=== PATIENT | female | born 1950 | race Caucasian/White ===

== ENCOUNTER 2016-05-11 11:00 | Inpatient (IN) | payer OTHER ==
[~2016-05-11] VITALS: Ht 154.9 cm; Wt 63.2 kg
[~2016-05-11 11:00] MED LIST: ACET325T21 PO; ACID1TAB7 PO; AMLO10TA2 PO; AMLO5TAB2 PO; ASPI-496 PO; ASPI-621 PO; CARV6.252 PO; CLOP75TA PO; CLOP75TA22 PO; INSU100C5 SQ-INSULIN; INSU100I28 SQ-INSULIN; ISOS30TA8 PO; LISI-170 PO; LISI40TA PO; LOPE1TAB4 PO; LOVA40TA2 PO; MONT10TA6 PO; PANT40TA3 PO; PANT40TA5 PO; VANC1VIA3 PO
[2016-05-11] MEDS ORDERED: SODIUM CHLORIDE FLUSH 10ML SYR IVF ONE (12:00)
[2016-05-11] MEDS ORDERED: HYDROmorphone 1 MG/ML, 1ML ONE ×2 (12:08→15:48)
[2016-05-11] MEDS: HYDROmorphone 1 MG/ML, 1ML IVPush PRN ×2 (12:24→15:53)
[2016-05-11 12:46] LABS: BLOOD UREA NITROGEN 21 mg/dL (7-18)
[2016-05-11 12:53] LABS: ASPARTATE AMINO TRANSFERASE 8 U/L (15-37)
[2016-05-11 12:59] LABS: ANISOCYTOSIS 1+; HYPOCHROMIA 1+; MICROCYTOSIS 1+; OVALOCYTES 1+; POLYCHROMASIA 1+
[2016-05-11] MEDS ORDERED: CHOL20003 PO (13:49)
[2016-05-11] MEDS ORDERED: VANCOMYCIN 1,200 MG in SODIUM CHLORIDE 0.9% 250 ML IV ONE (14:00)
[2016-05-11] MEDS ORDERED: VANCOMYCIN PER PHARMACY MC ONE (14:00)
[2016-05-11] MEDS ORDERED: VANCOMYCIN PER PHARMACY MC PRN (17:30)
[2016-05-11] MEDS ORDERED: PHARMACOKINETIC MONITORING MC PRN (18:00)
[2016-05-11] MEDS: ACETAMINOPHEN 325 MG TABLET PO PRN (18:04)
[2016-05-11 18:13] LABS: IS PT STATUS REG ER OR PRE ER? NO
[2016-05-11] MEDS: morphine SULFATE 10 MG/ML, 1ML IVPush PRN ×2 (18:21→22:22)
[2016-05-11 20:00] VITALS: BP 170/68
[2016-05-11] MEDS: NICOTINE 14MG/24 HR PATCH.TD24 TD SCH ×2 (21:00→22:08)
[2016-05-11] MEDS: LACTOBACILLUS CHEW TABLET PO SCH (22:07)
[2016-05-11] MEDS: LOVASTATIN 40 MG TABLET PO SCH (22:07)
[2016-05-11] MEDS: CARVEDILOL 12.5 MG TABLET PO SCH (22:08)
[2016-05-11 22:25] VITALS: BP 170/68
[2016-05-11 22:55] VITALS: BP 131/81
[2016-05-12 01:43] VITALS: BP 138/64
[2016-05-12] MEDS: ASPIRIN 81 MG TABLET EC PO SCH (05:33)
[2016-05-12 06:12] LABS: IS PT STATUS REG ER OR PRE ER? NO
[2016-05-12] MEDS: ACETAMINOPHEN 325 MG TABLET PO PRN (06:49)
[2016-05-12 06:53] VITALS: BP 172/80
[2016-05-12] MEDS: LISINOPRIL 20 MG TABLET PO SCH (09:17)
[2016-05-12] MEDS: CARVEDILOL 12.5 MG TABLET PO SCH ×2 (09:17→20:26)
[2016-05-12] MEDS: AMLODIPINE 5 MG TABLET PO SCH (09:17)
[2016-05-12] MEDS: LACTOBACILLUS CHEW TABLET PO SCH ×3 (09:17→20:26)
[2016-05-12] MEDS: CLOPIDOGREL 75 MG TABLET PO SCH (09:18)
[2016-05-12] MEDS: ISOSORBIDE MONONITRATE ER 60 MG TABLET PO SCH (09:18)
[2016-05-12] MEDS: MONTELUKAST 10 MG TABLET PO SCH (09:18)
[2016-05-12] MEDS: CHOLECALCIFEROL 1,000 UNIT TABLET PO SCH (09:18)
[2016-05-12] MEDS: OXYcodone/APAP 5/325MG TABLET PO PRN (11:37)
[2016-05-12] MEDS ORDERED: LIDOCAINE 2%, 20ML ONE (13:35)
[2016-05-12 13:56] VITALS: BP 165/78
[2016-05-12] MEDS ORDERED: MIDAZOLAM 1 MG/ML, 5ML ONE (14:01)
[2016-05-12] MEDS ORDERED: PROTAMINE SULFATE 10 MG/ML, 25ML ONE (14:01)
[2016-05-12] MEDS ORDERED: FENTANYL PF 100 MCG/2ML ONE (14:02)
[2016-05-12] MEDS ORDERED: FLUMAZENIL 0.1 MG/1 ML, 5ML ONE (14:02)
[2016-05-12] MEDS ORDERED: HEPARIN 1,000 UNITS/ML, 10ML ONE (14:02)
[2016-05-12] MEDS ORDERED: NITROGLYCERIN 5 MG/ML, 10ML ONE (14:02)
[2016-05-12] MEDS ORDERED: NALOXONE 1 MG/ML, 2ML ONE (14:02)
[2016-05-12] MEDS ORDERED: HYDROmorphone 1 MG/ML, 1ML ONE (15:23)
[2016-05-12] MEDS ORDERED: DIPHENHYDRAMINE 50 MG/ML, 1ML ONE (15:35)
[2016-05-12] MEDS ORDERED: VISIPAQUE 270 MG/ML, 150ML BOTTLE ONE (16:20)
[2016-05-12 18:35] VITALS: BP 173/89
[2016-05-12] MEDS: LOVASTATIN 40 MG TABLET PO SCH (20:26)
[2016-05-12] MEDS: NICOTINE 14MG/24 HR PATCH.TD24 TD SCH (20:26)
[2016-05-12] MEDS: SODIUM CHLORIDE FLUSH 10ML SYR IVF SCH (20:26)
[2016-05-12] MEDS: SODIUM CHLORIDE 0.9% 1,000 ML IV SCH (21:30)
[2016-05-13 01:27] VITALS: BP 144/53
[2016-05-13 05:38] LABS: BLOOD UREA NITROGEN 17 mg/dL (7-18)
[2016-05-13] MEDS: SODIUM CHLORIDE 0.9% 1,000 ML IV SCH (05:44)
[2016-05-13] MEDS: ASPIRIN 81 MG TABLET EC PO SCH (05:44)
[2016-05-13 06:56] VITALS: BP 179/70
[2016-05-13] MEDS: SODIUM CHLORIDE FLUSH 10ML SYR IVF SCH ×2 (09:00→20:42)
[2016-05-13] MEDS: OXYcodone/APAP 5/325MG TABLET PO PRN ×2 (10:04→18:15)
[2016-05-13] MEDS: ISOSORBIDE MONONITRATE ER 60 MG TABLET PO SCH (10:06)
[2016-05-13] MEDS: LISINOPRIL 20 MG TABLET PO SCH (10:07)
[2016-05-13] MEDS: AMLODIPINE 5 MG TABLET PO SCH (10:07)
[2016-05-13] MEDS: MONTELUKAST 10 MG TABLET PO SCH (10:07)
[2016-05-13] MEDS: LACTOBACILLUS CHEW TABLET PO SCH ×3 (10:07→20:42)
[2016-05-13] MEDS: CHOLECALCIFEROL 1,000 UNIT TABLET PO SCH (10:07)
[2016-05-13] MEDS: CARVEDILOL 12.5 MG TABLET PO SCH ×2 (10:07→20:42)
[2016-05-13] MEDS: CLOPIDOGREL 75 MG TABLET PO SCH (10:07)
[2016-05-13] MEDS ORDERED: VANCOMYCIN 1,200 MG in SODIUM CHLORIDE 0.9% 250 ML IV SCH (14:00)
[2016-05-13 14:20] VITALS: BP 162/70
[2016-05-13 20:00] VITALS: BP 144/63
[2016-05-13] MEDS: HYDROcodone/APAP 5/325 TABLET PO PRN (20:42)
[2016-05-13] MEDS: NICOTINE 14MG/24 HR PATCH.TD24 TD SCH ×3 (20:42→21:00)
[2016-05-13] MEDS: LOVASTATIN 40 MG TABLET PO SCH (20:42)
[2016-05-14 01:27] VITALS: BP 129/66
[2016-05-14] MEDS: OXYcodone/APAP 5/325MG TABLET PO PRN ×3 (05:34→23:32)
[2016-05-14] MEDS: ASPIRIN 81 MG TABLET EC PO SCH (06:00)
[2016-05-14 07:04] VITALS: BP 115/70
[2016-05-14] MEDS: MONTELUKAST 10 MG TABLET PO SCH (08:00)
[2016-05-14] MEDS: AMLODIPINE 5 MG TABLET PO SCH (08:00)
[2016-05-14] MEDS: LACTOBACILLUS CHEW TABLET PO SCH ×3 (08:00→20:25)
[2016-05-14] MEDS: CARVEDILOL 12.5 MG TABLET PO SCH ×2 (08:00→20:25)
[2016-05-14] MEDS: LISINOPRIL 20 MG TABLET PO SCH (08:00)
[2016-05-14] MEDS: CLOPIDOGREL 75 MG TABLET PO SCH (08:00)
[2016-05-14] MEDS: ISOSORBIDE MONONITRATE ER 60 MG TABLET PO SCH (08:01)
[2016-05-14] MEDS: CHOLECALCIFEROL 1,000 UNIT TABLET PO SCH (08:01)
[2016-05-14] MEDS: SODIUM CHLORIDE FLUSH 10ML SYR IVF SCH ×2 (08:02→21:00)
[2016-05-14] MEDS: POLYETHYLENE GLYCOL 17 GM PACKET PO SCH (09:00)
[2016-05-14] MEDS ORDERED: REGADENOSON 0.4 MG/5 ML SYRINGE ONE (10:03)
[2016-05-14] MEDS: morphine SULFATE 10 MG/ML, 1ML IVPush PRN ×2 (11:28→15:17)
[2016-05-14 13:56] VITALS: BP 127/64
[2016-05-14] MEDS: VANCOMYCIN 1,200 MG in SODIUM CHLORIDE 0.9% 250 ML IV SCH (18:26)
[2016-05-14 18:58] VITALS: BP 123/69
[2016-05-14] MEDS: HYDROcodone/APAP 5/325 TABLET PO PRN (20:25)
[2016-05-14] MEDS: LOVASTATIN 40 MG TABLET PO SCH (20:25)
[2016-05-14] MEDS: NICOTINE 14MG/24 HR PATCH.TD24 TD SCH (20:25)
[2016-05-15 01:45] VITALS: BP 128/43
[2016-05-15] MEDS: ASPIRIN 81 MG TABLET EC PO SCH (06:00)
[2016-05-15 07:04] VITALS: BP 159/84
[2016-05-15] MEDS: OXYcodone/APAP 5/325MG TABLET PO PRN ×2 (07:43→17:06)
[2016-05-15] MEDS: CLOPIDOGREL 75 MG TABLET PO SCH (08:48)
[2016-05-15] MEDS: LACTOBACILLUS CHEW TABLET PO SCH ×3 (08:48→21:12)
[2016-05-15] MEDS: POLYETHYLENE GLYCOL 17 GM PACKET PO SCH (08:49)
[2016-05-15] MEDS: SODIUM CHLORIDE FLUSH 10ML SYR IVF SCH ×2 (08:49→21:13)
[2016-05-15] MEDS: AMLODIPINE 5 MG TABLET PO SCH (08:49)
[2016-05-15] MEDS: MONTELUKAST 10 MG TABLET PO SCH (08:49)
[2016-05-15] MEDS: CARVEDILOL 12.5 MG TABLET PO SCH ×2 (08:49→21:13)
[2016-05-15] MEDS: LISINOPRIL 20 MG TABLET PO SCH (08:49)
[2016-05-15] MEDS: CHOLECALCIFEROL 1,000 UNIT TABLET PO SCH (08:50)
[2016-05-15] MEDS: ISOSORBIDE MONONITRATE ER 60 MG TABLET PO SCH (08:50)
[2016-05-15] MEDS: OxyconTIN ER 10 MG TAB.ER PO SCH ×2 (11:33→21:13)
[2016-05-15] MEDS: INSULIN ASPART 100 UNITS/ML, PEN SQ-INSULIN SCH ×3 (12:04→21:16)
[2016-05-15] MEDS: INSULIN DETEMIR 100 UNITS/ML, PEN SQ-INSULIN SCH ×2 (12:05→21:15)
[2016-05-15 13:20] VITALS: BP 90/49
[2016-05-15] MEDS: VANCOMYCIN 1,200 MG in SODIUM CHLORIDE 0.9% 250 ML IV SCH (17:07)
[2016-05-15 19:10] VITALS: BP 139/67
[2016-05-15] MEDS ORDERED: DIPHENHYDRAMINE 50 MG CAPSULE PO ONE (20:30)
[2016-05-15] MEDS: NICOTINE 14MG/24 HR PATCH.TD24 TD SCH (21:00)
[2016-05-15] MEDS: LOVASTATIN 40 MG TABLET PO SCH (21:12)
[2016-05-16 01:18] VITALS: BP 169/72
[2016-05-16] MEDS ORDERED: GLUCAGON 1 MG IM PRN (03:30)
[2016-05-16] MEDS ORDERED: DEXTROSE 4 GM TAB.CHEW PO PRN (03:30)
[2016-05-16] MEDS: OXYcodone/APAP 5/325MG TABLET PO PRN ×4 (04:59→22:35)
[2016-05-16] MEDS: ASPIRIN 81 MG TABLET EC PO SCH (05:07)
[2016-05-16 07:25] VITALS: BP 146/66
[2016-05-16] MEDS: POLYETHYLENE GLYCOL 17 GM PACKET PO SCH (09:00)
[2016-05-16] MEDS: SODIUM CHLORIDE FLUSH 10ML SYR IVF SCH ×2 (09:00→21:11)
[2016-05-16] MEDS: INSULIN ASPART 100 UNITS/ML, PEN SQ-INSULIN SCH (09:42)
[2016-05-16] MEDS: LACTOBACILLUS CHEW TABLET PO SCH ×3 (09:43→21:11)
[2016-05-16] MEDS: CARVEDILOL 12.5 MG TABLET PO SCH ×2 (09:43→21:11)
[2016-05-16] MEDS: ISOSORBIDE MONONITRATE ER 60 MG TABLET PO SCH (09:43)
[2016-05-16] MEDS: AMLODIPINE 5 MG TABLET PO SCH (09:45)
[2016-05-16] MEDS: LISINOPRIL 20 MG TABLET PO SCH (09:45)
[2016-05-16] MEDS: CLOPIDOGREL 75 MG TABLET PO SCH (09:45)
[2016-05-16] MEDS: MONTELUKAST 10 MG TABLET PO SCH (09:45)
[2016-05-16] MEDS: CHOLECALCIFEROL 1,000 UNIT TABLET PO SCH (09:46)
[2016-05-16] MEDS ORDERED: INSULIN DETEMIR 100 UNITS/ML, PEN SQ-INSULIN SCH (10:30)
[2016-05-16] MEDS: OxyconTIN ER 10 MG TAB.ER PO SCH ×2 (11:24→21:11)
[2016-05-16 13:01] VITALS: BP 152/69
[2016-05-16] MEDS: CEFTAROLINE 600 MG in SODIUM CHLORIDE 0.9% 100 ML IV SCH (15:24)
[2016-05-16 18:43] VITALS: BP 149/51
[2016-05-16] MEDS: DEXTROSE 50%, 50ML SYRINGE IVPush PRN (20:16)
[2016-05-16] MEDS: NICOTINE 14MG/24 HR PATCH.TD24 TD SCH (21:00)
[2016-05-16] MEDS: LOVASTATIN 40 MG TABLET PO SCH (21:11)
[2016-05-17 01:59] VITALS: BP 145/73
[2016-05-17] MEDS: CEFTAROLINE 600 MG in SODIUM CHLORIDE 0.9% 100 ML IV SCH ×2 (04:47→15:36)
[2016-05-17] MEDS: ASPIRIN 81 MG TABLET EC PO SCH (06:00)
[2016-05-17] MEDS: OXYcodone/APAP 5/325MG TABLET PO PRN ×3 (06:10→21:16)
[2016-05-17 06:42] VITALS: BP 152/67
[2016-05-17] MEDS: POLYETHYLENE GLYCOL 17 GM PACKET PO SCH (08:55)
[2016-05-17] MEDS: SODIUM CHLORIDE FLUSH 10ML SYR IVF SCH ×2 (08:55→20:50)
[2016-05-17] MEDS: CARVEDILOL 12.5 MG TABLET PO SCH ×2 (08:56→20:51)
[2016-05-17] MEDS: ISOSORBIDE MONONITRATE ER 60 MG TABLET PO SCH (08:56)
[2016-05-17] MEDS: LACTOBACILLUS CHEW TABLET PO SCH ×3 (08:56→20:50)
[2016-05-17] MEDS: CLOPIDOGREL 75 MG TABLET PO SCH (08:56)
[2016-05-17] MEDS: AMLODIPINE 5 MG TABLET PO SCH (08:56)
[2016-05-17] MEDS: MONTELUKAST 10 MG TABLET PO SCH (08:57)
[2016-05-17] MEDS: CHOLECALCIFEROL 1,000 UNIT TABLET PO SCH (08:57)
[2016-05-17] MEDS: LISINOPRIL 20 MG TABLET PO SCH (08:57)
[2016-05-17] MEDS: OxyconTIN ER 10 MG TAB.ER PO SCH ×2 (11:05→23:53)
[2016-05-17 12:39] VITALS: BP 114/57
[2016-05-17 18:54] VITALS: BP 160/64
[2016-05-17] MEDS: LOVASTATIN 40 MG TABLET PO SCH (20:50)
[2016-05-17] MEDS: NICOTINE 14MG/24 HR PATCH.TD24 TD SCH (20:51)
[2016-05-18 01:59] VITALS: BP 132/54
[2016-05-18] MEDS: CEFTAROLINE 600 MG in SODIUM CHLORIDE 0.9% 100 ML IV SCH ×2 (03:43→15:30)
[2016-05-18] MEDS: ASPIRIN 81 MG TABLET EC PO SCH (04:56)
[2016-05-18 06:51] VITALS: BP 152/64
[2016-05-18] MEDS: SODIUM CHLORIDE FLUSH 10ML SYR IVF SCH ×2 (09:00→21:44)
[2016-05-18] MEDS: ONDANSETRON 2MG/ML, 2ML IVPush PRN (09:21)
[2016-05-18] MEDS: OXYcodone/APAP 5/325MG TABLET PO PRN ×2 (09:45→21:44)
[2016-05-18] MEDS: AMLODIPINE 5 MG TABLET PO SCH (09:55)
[2016-05-18] MEDS: MONTELUKAST 10 MG TABLET PO SCH (09:55)
[2016-05-18] MEDS: POLYETHYLENE GLYCOL 17 GM PACKET PO SCH ×2 (09:55→10:00)
[2016-05-18] MEDS: CHOLECALCIFEROL 1,000 UNIT TABLET PO SCH (09:55)
[2016-05-18] MEDS: LISINOPRIL 20 MG TABLET PO SCH (09:56)
[2016-05-18] MEDS: CLOPIDOGREL 75 MG TABLET PO SCH (09:56)
[2016-05-18] MEDS: ISOSORBIDE MONONITRATE ER 60 MG TABLET PO SCH (09:56)
[2016-05-18] MEDS: LACTOBACILLUS CHEW TABLET PO SCH ×3 (09:56→21:44)
[2016-05-18] MEDS: CARVEDILOL 12.5 MG TABLET PO SCH ×2 (09:57→21:48)
[2016-05-18] MEDS: DOCUSATE 100 MG CAPSULE PO PRN (10:00)
[2016-05-18] MEDS: OxyconTIN ER 10 MG TAB.ER PO SCH ×2 (11:30→23:30)
[2016-05-18 12:35] VITALS: BP 105/61
[2016-05-18 19:08] VITALS: BP 155/53
[2016-05-18] MEDS: NICOTINE 14MG/24 HR PATCH.TD24 TD SCH (20:33)
[2016-05-18 21:40] VITALS: BP 127/70
[2016-05-18] MEDS: LOVASTATIN 40 MG TABLET PO SCH (21:44)
[2016-05-19 01:10] VITALS: BP 121/66
[2016-05-19] MEDS: OXYcodone/APAP 5/325MG TABLET PO PRN ×2 (03:13→20:47)
[2016-05-19] MEDS: CEFTAROLINE 600 MG in SODIUM CHLORIDE 0.9% 100 ML IV SCH ×2 (04:24→15:53)
[2016-05-19] MEDS: ASPIRIN 81 MG TABLET EC PO SCH (04:27)
[2016-05-19 06:53] LABS: BLOOD UREA NITROGEN 29 mg/dL (7-18)
[2016-05-19 07:00] VITALS: BP 125/75
[2016-05-19] MEDS: CLOPIDOGREL 75 MG TABLET PO SCH (09:00)
[2016-05-19] MEDS: CHOLECALCIFEROL 1,000 UNIT TABLET PO SCH (09:24)
[2016-05-19] MEDS: MONTELUKAST 10 MG TABLET PO SCH (09:24)
[2016-05-19] MEDS: ISOSORBIDE MONONITRATE ER 60 MG TABLET PO SCH (09:24)
[2016-05-19] MEDS: LISINOPRIL 20 MG TABLET PO SCH (09:24)
[2016-05-19] MEDS: AMLODIPINE 5 MG TABLET PO SCH (09:24)
[2016-05-19] MEDS: CARVEDILOL 12.5 MG TABLET PO SCH ×2 (09:24→20:47)
[2016-05-19] MEDS: LACTOBACILLUS CHEW TABLET PO SCH ×3 (09:24→20:48)
[2016-05-19] MEDS: SODIUM CHLORIDE FLUSH 10ML SYR IVF SCH ×2 (09:25→20:48)
[2016-05-19] MEDS: OxyconTIN ER 10 MG TAB.ER PO SCH ×2 (11:48→23:30)
[2016-05-19 14:26] VITALS: BP 100/61
[2016-05-19 19:13] VITALS: BP 146/63
[2016-05-19] MEDS: NICOTINE 14MG/24 HR PATCH.TD24 TD SCH (20:32)
[2016-05-19] MEDS: LOVASTATIN 40 MG TABLET PO SCH (20:48)
[2016-05-20 01:41] VITALS: BP 144/56
[2016-05-20] MEDS: CEFTAROLINE 600 MG in SODIUM CHLORIDE 0.9% 100 ML IV SCH ×2 (03:43→15:20)
[2016-05-20] MEDS: ASPIRIN 81 MG TABLET EC PO SCH (04:57)
[2016-05-20] MEDS ORDERED: INSULIN ASPART 100 UNITS/ML, PEN SQ-INSULIN ONE ×2 (06:30→16:30)
[2016-05-20] MEDS ORDERED: BACITRACIN OINT 500U/GM, 15 GM ONE (06:38)
[2016-05-20] MEDS: ONDANSETRON 2MG/ML, 2ML IVPush PRN (06:46)
[2016-05-20 06:51] VITALS: BP 134/68
[2016-05-20] MEDS ORDERED: MIDAZOLAM 1 MG/ML, 2ML ONE (07:33)
[2016-05-20] MEDS ORDERED: FENTANYL PF 250 MCG/5ML ONE (07:33)
[2016-05-20] MEDS: SODIUM CHLORIDE FLUSH 10ML SYR IVF SCH ×2 (10:28→20:53)
[2016-05-20] MEDS: ISOSORBIDE MONONITRATE ER 60 MG TABLET PO SCH (10:29)
[2016-05-20] MEDS: MONTELUKAST 10 MG TABLET PO SCH (10:30)
[2016-05-20] MEDS: LISINOPRIL 20 MG TABLET PO SCH (10:30)
[2016-05-20] MEDS: AMLODIPINE 5 MG TABLET PO SCH (10:30)
[2016-05-20] MEDS: LACTOBACILLUS CHEW TABLET PO SCH ×3 (10:30→20:52)
[2016-05-20] MEDS: CARVEDILOL 12.5 MG TABLET PO SCH ×2 (10:30→20:52)
[2016-05-20] MEDS: CLOPIDOGREL 75 MG TABLET PO SCH (10:30)
[2016-05-20] MEDS: POLYETHYLENE GLYCOL 17 GM PACKET PO SCH (10:31)
[2016-05-20] MEDS: CHOLECALCIFEROL 1,000 UNIT TABLET PO SCH (10:32)
[2016-05-20] MEDS: OxyconTIN ER 10 MG TAB.ER PO SCH ×2 (11:32→23:19)
[2016-05-20] MEDS: INSULIN DETEMIR 100 UNITS/ML, PEN SQ-INSULIN SCH (11:53)
[2016-05-20] MEDS: INSULIN ASPART 100 UNITS/ML, PEN SQ-INSULIN SCH ×5 (12:00→20:53)
[2016-05-20 13:04] VITALS: BP 103/56
[2016-05-20] MEDS ORDERED: INSULIN DETEMIR 100 UNITS/ML, PEN SQ-INSULIN ONE (17:00)
[2016-05-20 19:06] VITALS: BP 111/58
[2016-05-20] MEDS: LOVASTATIN 40 MG TABLET PO SCH (20:52)
[2016-05-20] MEDS: NICOTINE 14MG/24 HR PATCH.TD24 TD SCH (20:53)
[2016-05-21] MEDS: DEXTROSE 50%, 50ML SYRINGE IVPush PRN ×2 (01:38→06:20)
[2016-05-21 02:28] VITALS: BP 105/62
[2016-05-21] MEDS: CEFTAROLINE 600 MG in SODIUM CHLORIDE 0.9% 100 ML IV SCH ×2 (03:10→15:10)
[2016-05-21] MEDS: ASPIRIN 81 MG TABLET EC PO SCH (05:33)
[2016-05-21] MEDS: INSULIN ASPART 100 UNITS/ML, PEN SQ-INSULIN SCH ×4 (06:18→21:00)
[2016-05-21 07:26] VITALS: BP 166/65
[2016-05-21] MEDS: INSULIN DETEMIR 100 UNITS/ML, PEN SQ-INSULIN SCH (09:00)
[2016-05-21] MEDS: AMLODIPINE 5 MG TABLET PO SCH (09:00)
[2016-05-21] MEDS: POLYETHYLENE GLYCOL 17 GM PACKET PO SCH (09:00)
[2016-05-21] MEDS: LISINOPRIL 20 MG TABLET PO SCH (09:00)
[2016-05-21] MEDS: CHOLECALCIFEROL 1,000 UNIT TABLET PO SCH (09:00)
[2016-05-21] MEDS: ISOSORBIDE MONONITRATE ER 60 MG TABLET PO SCH (09:00)
[2016-05-21] MEDS: SODIUM CHLORIDE FLUSH 10ML SYR IVF SCH ×2 (09:00→21:00)
[2016-05-21] MEDS: LACTOBACILLUS CHEW TABLET PO SCH ×3 (09:00→21:44)
[2016-05-21] MEDS: MONTELUKAST 10 MG TABLET PO SCH (09:00)
[2016-05-21] MEDS: CLOPIDOGREL 75 MG TABLET PO SCH (09:00)
[2016-05-21] MEDS: CARVEDILOL 12.5 MG TABLET PO SCH ×2 (09:16→21:44)
[2016-05-21] MEDS: OxyconTIN ER 10 MG TAB.ER PO SCH ×2 (11:30→23:08)
[2016-05-21] MEDS ORDERED: FENTANYL PF 100 MCG/2ML ONE ×2 (11:36→13:13)
[2016-05-21] MEDS ORDERED: NEOSPORIN OINT, 15GM ONE (11:47)
[2016-05-21] MEDS ORDERED: PROPOFOL 10 MG/ML, 20ML ONE (12:25)
[2016-05-21] MEDS ORDERED: LABETALOL 5MG/ML, 20ML IV PRN (12:30)
[2016-05-21] MEDS ORDERED: hydrALAzine 20 MG/ML, 1ML IV PRN (12:30)
[2016-05-21] MEDS ORDERED: PROMETHAZINE 25 MG/ML, 1ML IV PRN (12:30)
[2016-05-21] MEDS ORDERED: OXYcodone 5 MG/5 ML ORAL.SOL UDC PO PRN (12:30)
[2016-05-21] MEDS ORDERED: MEPERIDINE/PF 25MG/0.5ML IVPush PRN (12:30)
[2016-05-21] MEDS ORDERED: ONDANSETRON 2MG/ML, 2ML IVPush PRN (12:30)
[2016-05-21] MEDS: FENTANYL PF 100 MCG/2ML IV PRN ×2 (13:10→13:26)
[2016-05-21] MEDS ORDERED: ACETAMINOPHEN 650 MG/20.3 ML UDC ONE (13:13)
[2016-05-21] MEDS ORDERED: ACETAMINOPHEN 325 MG TABLET ONE (13:14)
[2016-05-21] MEDS ORDERED: OXYcodone 5 MG/5 ML ORAL.SOL UDC ONE (13:14)
[2016-05-21] MEDS: ACETAMINOPHEN 325 MG TABLET PO PRN (13:21)
[2016-05-21] MEDS ORDERED: HYDROmorphone 2 MG/ML, 1ML ONE ×2 (13:24→14:29)
[2016-05-21] MEDS: HYDROmorphone 1 MG/ML, 1ML IV PRN ×6 (13:32→14:31)
[2016-05-21] MEDS ORDERED: hydrALAzine 20 MG/ML, 1ML ONE (13:57)
[2016-05-21] MEDS ORDERED: PROMETHAZINE 25 MG/ML, 1ML ONE (14:18)
[2016-05-21 15:10] VITALS: BP 161/57
[2016-05-21] MEDS ORDERED: INSULIN DETEMIR 100 UNITS/ML, PEN SQ-INSULIN SCH ×2 (16:30→17:00)
[2016-05-21] MEDS: OXYcodone/APAP 5/325MG TABLET PO PRN (17:48)
[2016-05-21 19:31] VITALS: BP 165/57
[2016-05-21] MEDS: NICOTINE 14MG/24 HR PATCH.TD24 TD SCH (21:00)
[2016-05-21] MEDS: morphine SULFATE 10 MG/ML, 1ML IVPush PRN ×2 (21:44→23:23)
[2016-05-21] MEDS: LOVASTATIN 40 MG TABLET PO SCH (21:44)
[2016-05-21] MEDS ORDERED: INSULIN DETEMIR 100 UNITS/ML, PEN SQ-INSULIN ONE (22:00)
[2016-05-22 02:03] VITALS: BP 141/50
[2016-05-22] MEDS: OXYcodone/APAP 5/325MG TABLET PO PRN ×2 (02:32→09:25)
[2016-05-22] MEDS: CEFTAROLINE 600 MG in SODIUM CHLORIDE 0.9% 100 ML IV SCH ×2 (03:02→15:54)
[2016-05-22] MEDS: morphine SULFATE 10 MG/ML, 1ML IVPush PRN (04:07)
[2016-05-22] MEDS: ASPIRIN 81 MG TABLET EC PO SCH (06:00)
[2016-05-22] MEDS: INSULIN ASPART 100 UNITS/ML, PEN SQ-INSULIN SCH ×4 (07:00→21:28)
[2016-05-22 07:22] VITALS: BP 131/64
[2016-05-22] MEDS: INSULIN DETEMIR 100 UNITS/ML, PEN SQ-INSULIN SCH (08:35)
[2016-05-22] MEDS: POLYETHYLENE GLYCOL 17 GM PACKET PO SCH (09:00)
[2016-05-22] MEDS: ISOSORBIDE MONONITRATE ER 60 MG TABLET PO SCH (09:24)
[2016-05-22] MEDS: MONTELUKAST 10 MG TABLET PO SCH (09:25)
[2016-05-22] MEDS: CARVEDILOL 12.5 MG TABLET PO SCH ×2 (09:25→21:16)
[2016-05-22] MEDS: LACTOBACILLUS CHEW TABLET PO SCH ×3 (09:25→21:16)
[2016-05-22] MEDS: AMLODIPINE 5 MG TABLET PO SCH (09:25)
[2016-05-22] MEDS: LISINOPRIL 20 MG TABLET PO SCH (09:25)
[2016-05-22] MEDS: CHOLECALCIFEROL 1,000 UNIT TABLET PO SCH (09:25)
[2016-05-22] MEDS: CLOPIDOGREL 75 MG TABLET PO SCH (09:25)
[2016-05-22] MEDS: SODIUM CHLORIDE FLUSH 10ML SYR IVF SCH ×2 (09:26→21:15)
[2016-05-22] MEDS: OxyconTIN ER 10 MG TAB.ER PO SCH ×2 (11:30→23:49)
[2016-05-22 13:19] VITALS: BP 115/44
[2016-05-22 14:47] VITALS: BP 120/50
[2016-05-22] MEDS ORDERED: INSULIN ASPART 100 UNITS/ML, PEN SQ-INSULIN ONE (16:00)
[2016-05-22] MEDS: DEXTROSE 50%, 50ML SYRINGE IVPush PRN (17:00)
[2016-05-22 19:49] VITALS: BP 133/42
[2016-05-22] MEDS: LOVASTATIN 40 MG TABLET PO SCH (21:16)
[2016-05-22] MEDS: NICOTINE 14MG/24 HR PATCH.TD24 TD SCH (21:16)
[2016-05-23 02:47] VITALS: BP 139/45
[2016-05-23] MEDS: CEFTAROLINE 600 MG in SODIUM CHLORIDE 0.9% 100 ML IV SCH ×2 (04:18→15:23)
[2016-05-23 05:05] LABS: BLOOD UREA NITROGEN 23 mg/dL (7-18)
[2016-05-23] MEDS: ASPIRIN 81 MG TABLET EC PO SCH (06:31)
[2016-05-23] MEDS: OXYcodone/APAP 5/325MG TABLET PO PRN ×2 (06:37→17:12)
[2016-05-23 08:00] VITALS: BP 118/49
[2016-05-23] MEDS ORDERED: INSULIN DETEMIR 100 UNITS/ML, PEN SQ-INSULIN SCH (08:00)
[2016-05-23] MEDS: INSULIN ASPART 100 UNITS/ML, PEN SQ-INSULIN SCH ×4 (08:11→22:46)
[2016-05-23] MEDS: INSULIN DETEMIR 100 UNITS/ML, PEN SQ-INSULIN SCH (08:11)
[2016-05-23] MEDS: SODIUM CHLORIDE FLUSH 10ML SYR IVF SCH ×2 (08:13→21:00)
[2016-05-23] MEDS: CARVEDILOL 12.5 MG TABLET PO SCH ×2 (08:18→22:45)
[2016-05-23] MEDS: LACTOBACILLUS CHEW TABLET PO SCH ×3 (08:19→22:46)
[2016-05-23] MEDS: ISOSORBIDE MONONITRATE ER 60 MG TABLET PO SCH (08:19)
[2016-05-23] MEDS: MONTELUKAST 10 MG TABLET PO SCH (08:20)
[2016-05-23] MEDS: LISINOPRIL 20 MG TABLET PO SCH (08:20)
[2016-05-23] MEDS: CLOPIDOGREL 75 MG TABLET PO SCH (08:20)
[2016-05-23] MEDS: AMLODIPINE 5 MG TABLET PO SCH (08:20)
[2016-05-23] MEDS: POLYETHYLENE GLYCOL 17 GM PACKET PO SCH (08:20)
[2016-05-23] MEDS: CHOLECALCIFEROL 1,000 UNIT TABLET PO SCH (08:20)
[2016-05-23] MEDS: OxyconTIN ER 10 MG TAB.ER PO SCH ×2 (12:24→23:30)
[2016-05-23 13:59] VITALS: BP 125/50
[2016-05-23] MEDS ORDERED: INSULIN DETEMIR 100 UNITS/ML, PEN SQ-INSULIN ONE (17:30)
[2016-05-23 19:13] VITALS: BP 117/42
[2016-05-23] MEDS: NICOTINE 14MG/24 HR PATCH.TD24 TD SCH (21:00)
[2016-05-23] MEDS: LOVASTATIN 40 MG TABLET PO SCH (22:46)
[2016-05-24 02:00] VITALS: BP 128/43
[2016-05-24] MEDS: CEFTAROLINE 600 MG in SODIUM CHLORIDE 0.9% 100 ML IV SCH ×2 (03:35→16:03)
[2016-05-24] MEDS: DEXTROSE 50%, 50ML SYRINGE IVPush PRN (03:52)
[2016-05-24] MEDS: ASPIRIN 81 MG TABLET EC PO SCH (05:48)
[2016-05-24 08:10] VITALS: BP 159/50
[2016-05-24] MEDS: OXYcodone/APAP 5/325MG TABLET PO PRN (08:15)
[2016-05-24] MEDS: POLYETHYLENE GLYCOL 17 GM PACKET PO SCH (08:15)
[2016-05-24] MEDS: MONTELUKAST 10 MG TABLET PO SCH (08:16)
[2016-05-24] MEDS: CHOLECALCIFEROL 1,000 UNIT TABLET PO SCH (08:16)
[2016-05-24] MEDS: LACTOBACILLUS CHEW TABLET PO SCH ×3 (08:16→20:39)
[2016-05-24] MEDS: AMLODIPINE 5 MG TABLET PO SCH (08:16)
[2016-05-24] MEDS: LISINOPRIL 20 MG TABLET PO SCH (08:16)
[2016-05-24] MEDS: CLOPIDOGREL 75 MG TABLET PO SCH (08:16)
[2016-05-24] MEDS: CARVEDILOL 12.5 MG TABLET PO SCH ×3 (08:16→21:00)
[2016-05-24] MEDS: ISOSORBIDE MONONITRATE ER 60 MG TABLET PO SCH (08:20)
[2016-05-24] MEDS: INSULIN DETEMIR 100 UNITS/ML, PEN SQ-INSULIN SCH (08:21)
[2016-05-24] MEDS: INSULIN ASPART 100 UNITS/ML, PEN SQ-INSULIN SCH ×4 (08:21→21:00)
[2016-05-24] MEDS: OxyconTIN ER 10 MG TAB.ER PO SCH ×2 (12:34→23:40)
[2016-05-24] MEDS: SODIUM CHLORIDE FLUSH 10ML SYR IVF SCH ×2 (13:07→20:40)
[2016-05-24 14:45] VITALS: BP 109/47
[2016-05-24] MEDS ORDERED: INSULIN ASPART 100 UNITS/ML, PEN SQ-INSULIN ONE (17:30)
[2016-05-24] MEDS: LOVASTATIN 40 MG TABLET PO SCH (20:40)
[2016-05-24] MEDS: NICOTINE 14MG/24 HR PATCH.TD24 TD SCH (20:45)
[2016-05-24 20:54] VITALS: BP 120/46
[2016-05-25 01:37] VITALS: BP 149/50
[2016-05-25] MEDS: INSULIN ASPART 100 UNITS/ML, PEN SQ-INSULIN SCH ×4 (01:50→21:00)
[2016-05-25] MEDS: CEFTAROLINE 600 MG in SODIUM CHLORIDE 0.9% 100 ML IV SCH ×2 (03:54→16:37)
[2016-05-25] MEDS: ASPIRIN 81 MG TABLET EC PO SCH (06:00)
[2016-05-25] MEDS ORDERED: INSULIN DETEMIR 100 UNITS/ML, PEN SQ-INSULIN SCH (08:00)
[2016-05-25 08:04] VITALS: BP 150/49
[2016-05-25] MEDS ORDERED: INSULIN DETEMIR 100 UNITS/ML, PEN SQ-INSULIN ONE (08:30)
[2016-05-25] MEDS: POLYETHYLENE GLYCOL 17 GM PACKET PO SCH (08:33)
[2016-05-25] MEDS: MONTELUKAST 10 MG TABLET PO SCH (08:34)
[2016-05-25] MEDS: CHOLECALCIFEROL 1,000 UNIT TABLET PO SCH (08:34)
[2016-05-25] MEDS: LACTOBACILLUS CHEW TABLET PO SCH ×3 (08:35→21:19)
[2016-05-25] MEDS: CARVEDILOL 12.5 MG TABLET PO SCH ×2 (08:35→21:19)
[2016-05-25] MEDS: CLOPIDOGREL 75 MG TABLET PO SCH (08:35)
[2016-05-25] MEDS: ISOSORBIDE MONONITRATE ER 60 MG TABLET PO SCH (08:35)
[2016-05-25] MEDS: LISINOPRIL 20 MG TABLET PO SCH (08:35)
[2016-05-25] MEDS: AMLODIPINE 5 MG TABLET PO SCH (08:35)
[2016-05-25] MEDS: SODIUM CHLORIDE FLUSH 10ML SYR IVF SCH ×2 (08:35→21:00)
[2016-05-25] MEDS: OxyconTIN ER 10 MG TAB.ER PO SCH ×2 (11:21→23:45)
[2016-05-25 12:48] VITALS: BP 137/42
[2016-05-25 19:49] VITALS: BP 124/62
[2016-05-25] MEDS: NICOTINE 14MG/24 HR PATCH.TD24 TD SCH (21:00)
[2016-05-25] MEDS: LOVASTATIN 40 MG TABLET PO SCH (21:19)
[2016-05-26 02:00] VITALS: BP 143/86
[2016-05-26] MEDS: CEFTAROLINE 600 MG in SODIUM CHLORIDE 0.9% 100 ML IV SCH ×2 (03:50→16:14)
[2016-05-26] MEDS: ASPIRIN 81 MG TABLET EC PO SCH (04:03)
[2016-05-26] MEDS: LACTOBACILLUS CHEW TABLET PO SCH ×3 (09:00→23:00)
[2016-05-26] MEDS: SODIUM CHLORIDE FLUSH 10ML SYR IVF SCH ×2 (09:00→21:00)
[2016-05-26] MEDS: POLYETHYLENE GLYCOL 17 GM PACKET PO SCH (09:00)
[2016-05-26 09:01] VITALS: BP 158/82
[2016-05-26] MEDS: CLOPIDOGREL 75 MG TABLET PO SCH (09:09)
[2016-05-26] MEDS: CHOLECALCIFEROL 1,000 UNIT TABLET PO SCH (09:09)
[2016-05-26] MEDS: CARVEDILOL 12.5 MG TABLET PO SCH ×2 (09:09→23:00)
[2016-05-26] MEDS: MONTELUKAST 10 MG TABLET PO SCH (09:09)
[2016-05-26] MEDS: AMLODIPINE 5 MG TABLET PO SCH (09:09)
[2016-05-26] MEDS: LISINOPRIL 20 MG TABLET PO SCH (09:10)
[2016-05-26] MEDS: ISOSORBIDE MONONITRATE ER 60 MG TABLET PO SCH (09:10)
[2016-05-26] MEDS: INSULIN ASPART 100 UNITS/ML, PEN SQ-INSULIN SCH ×3 (09:12→16:00)
[2016-05-26] MEDS: OXYcodone/APAP 5/325MG TABLET PO PRN (09:13)
[2016-05-26] MEDS: OxyconTIN ER 10 MG TAB.ER PO SCH (11:56)
[2016-05-26] MEDS ORDERED: DEXTROSE 50%, 50ML VIAL ONE (12:00)
[2016-05-26 15:00] VITALS: BP 142/47
[2016-05-26 19:05] VITALS: BP 115/53
[2016-05-26] MEDS: DEXTROSE 50%, 50ML SYRINGE IVPush PRN ×2 (20:46→20:47)
[2016-05-26] MEDS: NICOTINE 14MG/24 HR PATCH.TD24 TD SCH (21:00)
[2016-05-26] MEDS ORDERED: DEXTROSE 50%, 50ML SYRINGE IVPush PRN (21:00)
[2016-05-26] MEDS: LOVASTATIN 40 MG TABLET PO SCH (23:00)
[2016-05-27 01:12] VITALS: BP 167/53
[2016-05-27] MEDS ORDERED: INSULIN ASPART 100 UNITS/ML, PEN SQ-INSULIN SCH (01:30)
[2016-05-27] MEDS: OxyconTIN ER 10 MG TAB.ER PO SCH ×2 (01:48→12:00)
[2016-05-27] MEDS: INSULIN ASPART 100 UNITS/ML, PEN SQ-INSULIN SCH ×5 (01:50→21:00)
[2016-05-27] MEDS ORDERED: INSULIN DETEMIR 100 UNITS/ML, PEN SQ-INSULIN SCH ×2 (02:00→08:00)
[2016-05-27] MEDS: CEFTAROLINE 600 MG in SODIUM CHLORIDE 0.9% 100 ML IV SCH ×2 (03:36→16:42)
[2016-05-27] MEDS: ASPIRIN 81 MG TABLET EC PO SCH (06:00)
[2016-05-27 07:18] VITALS: BP 137/45
[2016-05-27] MEDS: POLYETHYLENE GLYCOL 17 GM PACKET PO SCH (09:00)
[2016-05-27] MEDS: SODIUM CHLORIDE FLUSH 10ML SYR IVF SCH ×2 (09:14→21:00)
[2016-05-27] MEDS: CARVEDILOL 12.5 MG TABLET PO SCH ×2 (09:15→21:53)
[2016-05-27] MEDS: LISINOPRIL 20 MG TABLET PO SCH (09:16)
[2016-05-27] MEDS: MONTELUKAST 10 MG TABLET PO SCH (09:17)
[2016-05-27] MEDS: AMLODIPINE 5 MG TABLET PO SCH (09:17)
[2016-05-27] MEDS: CLOPIDOGREL 75 MG TABLET PO SCH (09:17)
[2016-05-27] MEDS: CHOLECALCIFEROL 1,000 UNIT TABLET PO SCH (09:18)
[2016-05-27] MEDS: LACTOBACILLUS CHEW TABLET PO SCH ×3 (09:18→21:00)
[2016-05-27] MEDS: ISOSORBIDE MONONITRATE ER 60 MG TABLET PO SCH (09:19)
[2016-05-27] MEDS: INSULIN DETEMIR 100 UNITS/ML, PEN SQ-INSULIN SCH ×2 (09:20→21:54)
[2016-05-27] MEDS: FLUCONAZOLE 400 MG/200 ML 200 ML IV SCH (12:08)
[2016-05-27 13:15] VITALS: BP 125/45
[2016-05-27] MEDS: OXYcodone/APAP 5/325MG TABLET PO PRN (14:31)
[2016-05-27 20:54] VITALS: BP 118/43
[2016-05-27] MEDS: NICOTINE 14MG/24 HR PATCH.TD24 TD SCH (21:00)
[2016-05-27] MEDS: LOVASTATIN 40 MG TABLET PO SCH (21:52)
[2016-05-28] MEDS: OxyconTIN ER 10 MG TAB.ER PO SCH ×3 (00:30→23:48)
[2016-05-28] MEDS: CEFTAROLINE 600 MG in SODIUM CHLORIDE 0.9% 100 ML IV SCH ×2 (04:00→15:25)
[2016-05-28 04:04] VITALS: BP 132/70
[2016-05-28] MEDS: ASPIRIN 81 MG TABLET EC PO SCH (06:00)
[2016-05-28] MEDS: DEXTROSE 50%, 50ML SYRINGE IVPush PRN (06:43)
[2016-05-28] MEDS: INSULIN ASPART 100 UNITS/ML, PEN SQ-INSULIN SCH ×4 (07:00→21:00)
[2016-05-28] MEDS: SODIUM CHLORIDE FLUSH 10ML SYR IVF SCH ×2 (08:00→21:56)
[2016-05-28] MEDS: CLOPIDOGREL 75 MG TABLET PO SCH (08:01)
[2016-05-28] MEDS: LISINOPRIL 20 MG TABLET PO SCH (08:01)
[2016-05-28] MEDS: MONTELUKAST 10 MG TABLET PO SCH (08:01)
[2016-05-28] MEDS: ISOSORBIDE MONONITRATE ER 60 MG TABLET PO SCH (08:01)
[2016-05-28] MEDS: CHOLECALCIFEROL 1,000 UNIT TABLET PO SCH (08:01)
[2016-05-28] MEDS: LACTOBACILLUS CHEW TABLET PO SCH ×3 (08:02→21:56)
[2016-05-28] MEDS: AMLODIPINE 5 MG TABLET PO SCH (08:02)
[2016-05-28] MEDS: POLYETHYLENE GLYCOL 17 GM PACKET PO SCH (08:02)
[2016-05-28] MEDS: CARVEDILOL 12.5 MG TABLET PO SCH ×2 (08:02→21:58)
[2016-05-28] MEDS ORDERED: INSULIN DETEMIR 100 UNITS/ML, PEN SQ-INSULIN SCH (09:00)
[2016-05-28 09:01] VITALS: BP 116/50
[2016-05-28] MEDS: FLUCONAZOLE 400 MG/200 ML 200 ML IV SCH (11:57)
[2016-05-28] MEDS ORDERED: INSULIN ASPART 100 UNITS/ML, PEN SQ-INSULIN ONE (12:00)
[2016-05-28 13:19] VITALS: BP 114/55
[2016-05-28] MEDS ORDERED: INSULIN REGULAR 100 UNITS/ML, 3ML VIAL SQ-INSULIN ONE (17:00)
[2016-05-28] MEDS: NICOTINE 14MG/24 HR PATCH.TD24 TD SCH (21:00)
[2016-05-28 21:10] VITALS: BP 170/55
[2016-05-28] MEDS: LOVASTATIN 40 MG TABLET PO SCH (21:56)
[2016-05-29 02:24] VITALS: BP 146/50
[2016-05-29] MEDS: CEFTAROLINE 600 MG in SODIUM CHLORIDE 0.9% 100 ML IV SCH ×2 (04:01→15:41)
[2016-05-29] MEDS: ASPIRIN 81 MG TABLET EC PO SCH (06:00)
[2016-05-29 06:52] VITALS: BP 152/56
[2016-05-29] MEDS: INSULIN ASPART 100 UNITS/ML, PEN SQ-INSULIN SCH ×4 (08:22→21:00)
[2016-05-29] MEDS: LISINOPRIL 20 MG TABLET PO SCH (08:36)
[2016-05-29] MEDS: AMLODIPINE 5 MG TABLET PO SCH (08:37)
[2016-05-29] MEDS: LACTOBACILLUS CHEW TABLET PO SCH ×3 (08:37→21:01)
[2016-05-29] MEDS: CARVEDILOL 12.5 MG TABLET PO SCH ×2 (08:37→21:01)
[2016-05-29] MEDS: CLOPIDOGREL 75 MG TABLET PO SCH (08:37)
[2016-05-29] MEDS: CHOLECALCIFEROL 1,000 UNIT TABLET PO SCH (08:38)
[2016-05-29] MEDS: ISOSORBIDE MONONITRATE ER 60 MG TABLET PO SCH (08:39)
[2016-05-29] MEDS: MONTELUKAST 10 MG TABLET PO SCH (08:39)
[2016-05-29] MEDS: INSULIN DETEMIR 100 UNITS/ML, PEN SQ-INSULIN SCH (08:43)
[2016-05-29] MEDS: SODIUM CHLORIDE FLUSH 10ML SYR IVF SCH ×2 (08:47→21:01)
[2016-05-29] MEDS: POLYETHYLENE GLYCOL 17 GM PACKET PO SCH (08:47)
[2016-05-29] MEDS ORDERED: INSULIN ASPART 100 UNITS/ML, PEN SQ-INSULIN ONE ×3 (09:00→16:00)
[2016-05-29] MEDS: OxyconTIN ER 10 MG TAB.ER PO SCH ×2 (12:41→23:29)
[2016-05-29] MEDS: FLUCONAZOLE 400 MG/200 ML 200 ML IV SCH (12:41)
[2016-05-29 13:34] VITALS: BP 150/61
[2016-05-29 20:57] VITALS: BP 138/50
[2016-05-29] MEDS: NICOTINE 14MG/24 HR PATCH.TD24 TD SCH (21:00)
[2016-05-29] MEDS: LOVASTATIN 40 MG TABLET PO SCH (21:01)
[2016-05-30 03:59] VITALS: BP 132/44
[2016-05-30] MEDS: CEFTAROLINE 600 MG in SODIUM CHLORIDE 0.9% 100 ML IV SCH ×2 (04:03→16:28)
[2016-05-30] MEDS: ASPIRIN 81 MG TABLET EC PO SCH (04:04)
[2016-05-30] MEDS: OXYcodone/APAP 5/325MG TABLET PO PRN (04:16)
[2016-05-30 07:30] VITALS: BP 130/53
[2016-05-30] MEDS: INSULIN ASPART 100 UNITS/ML, PEN SQ-INSULIN SCH ×4 (07:50→21:00)
[2016-05-30] MEDS: POLYETHYLENE GLYCOL 17 GM PACKET PO SCH (09:00)
[2016-05-30] MEDS: INSULIN DETEMIR 100 UNITS/ML, PEN SQ-INSULIN SCH ×2 (09:00→12:41)
[2016-05-30] MEDS: SODIUM CHLORIDE FLUSH 10ML SYR IVF SCH ×2 (09:00→21:48)
[2016-05-30] MEDS ORDERED: INSULIN DETEMIR 100 UNITS/ML, PEN SQ-INSULIN ONE ×2 (09:30→17:30)
[2016-05-30] MEDS: OxyconTIN ER 10 MG TAB.ER PO SCH ×2 (11:30→23:30)
[2016-05-30] MEDS: CARVEDILOL 12.5 MG TABLET PO SCH ×2 (12:11→21:47)
[2016-05-30] MEDS: CLOPIDOGREL 75 MG TABLET PO SCH (12:12)
[2016-05-30] MEDS: AMLODIPINE 5 MG TABLET PO SCH (12:12)
[2016-05-30] MEDS: LISINOPRIL 20 MG TABLET PO SCH (12:12)
[2016-05-30] MEDS: LACTOBACILLUS CHEW TABLET PO SCH ×3 (12:12→21:48)
[2016-05-30] MEDS: DOCUSATE 100 MG CAPSULE PO PRN (12:12)
[2016-05-30] MEDS: ISOSORBIDE MONONITRATE ER 60 MG TABLET PO SCH (12:12)
[2016-05-30] MEDS: CHOLECALCIFEROL 1,000 UNIT TABLET PO SCH (12:12)
[2016-05-30] MEDS: MONTELUKAST 10 MG TABLET PO SCH (12:12)
[2016-05-30] MEDS: FLUCONAZOLE 400 MG/200 ML 200 ML IV SCH (12:37)
[2016-05-30 13:02] VITALS: BP 155/58
[2016-05-30] MEDS ORDERED: INSULIN ASPART 100 UNITS/ML, PEN SQ-INSULIN ONE (17:30)
[2016-05-30 18:41] VITALS: BP 130/47
[2016-05-30] MEDS: NICOTINE 14MG/24 HR PATCH.TD24 TD SCH (21:00)
[2016-05-30] MEDS: LOVASTATIN 40 MG TABLET PO SCH (21:48)
[2016-05-31 02:03] VITALS: BP 142/93
[2016-05-31] MEDS: CEFTAROLINE 600 MG in SODIUM CHLORIDE 0.9% 100 ML IV SCH ×2 (03:24→16:16)
[2016-05-31] MEDS: ASPIRIN 81 MG TABLET EC PO SCH (06:00)
[2016-05-31 09:00] VITALS: BP 145/60
[2016-05-31] MEDS: SODIUM CHLORIDE FLUSH 10ML SYR IVF SCH ×2 (09:00→21:06)
[2016-05-31] MEDS ORDERED: INSULIN DETEMIR 100 UNITS/ML, PEN SQ-INSULIN SCH ×2 (09:00→18:00)
[2016-05-31] MEDS: LACTOBACILLUS CHEW TABLET PO SCH ×3 (09:58→21:06)
[2016-05-31] MEDS: ACETAMINOPHEN 325 MG TABLET PO PRN (09:58)
[2016-05-31] MEDS: CHOLECALCIFEROL 1,000 UNIT TABLET PO SCH (09:58)
[2016-05-31] MEDS: MONTELUKAST 10 MG TABLET PO SCH (09:59)
[2016-05-31] MEDS: LISINOPRIL 20 MG TABLET PO SCH (09:59)
[2016-05-31] MEDS: CLOPIDOGREL 75 MG TABLET PO SCH (09:59)
[2016-05-31] MEDS: CARVEDILOL 12.5 MG TABLET PO SCH ×2 (09:59→21:06)
[2016-05-31] MEDS: AMLODIPINE 5 MG TABLET PO SCH (10:00)
[2016-05-31] MEDS: ISOSORBIDE MONONITRATE ER 60 MG TABLET PO SCH (10:00)
[2016-05-31] MEDS: POLYETHYLENE GLYCOL 17 GM PACKET PO SCH (10:00)
[2016-05-31] MEDS: INSULIN ASPART 100 UNITS/ML, PEN SQ-INSULIN SCH ×4 (10:08→20:40)
[2016-05-31] MEDS: FLUCONAZOLE 400 MG/200 ML 200 ML IV SCH (12:05)
[2016-05-31] MEDS ORDERED: INSULIN ASPART 100 UNITS/ML, PEN SQ-INSULIN ONE (12:30)
[2016-05-31 14:30] VITALS: BP 134/47
[2016-05-31 18:50] VITALS: BP 130/47
[2016-05-31] MEDS: NICOTINE 14MG/24 HR PATCH.TD24 TD SCH (21:00)
[2016-05-31] MEDS: LOVASTATIN 40 MG TABLET PO SCH (21:06)
[2016-06-01] MEDS: CEFTAROLINE 600 MG in SODIUM CHLORIDE 0.9% 100 ML IV SCH ×2 (03:14→15:27)
[2016-06-01 03:25] VITALS: BP 148/48
[2016-06-01] MEDS: ASPIRIN 81 MG TABLET EC PO SCH (03:49)
[2016-06-01 07:28] VITALS: BP 147/56
[2016-06-01] MEDS: INSULIN ASPART 100 UNITS/ML, PEN SQ-INSULIN SCH ×4 (08:14→21:57)
[2016-06-01] MEDS: SODIUM CHLORIDE FLUSH 10ML SYR IVF SCH ×2 (09:00→21:56)
[2016-06-01] MEDS: LACTOBACILLUS CHEW TABLET PO SCH ×3 (09:34→21:56)
[2016-06-01] MEDS: CLOPIDOGREL 75 MG TABLET PO SCH (09:35)
[2016-06-01] MEDS: ISOSORBIDE MONONITRATE ER 60 MG TABLET PO SCH (09:35)
[2016-06-01] MEDS: LISINOPRIL 20 MG TABLET PO SCH (09:35)
[2016-06-01] MEDS: AMLODIPINE 5 MG TABLET PO SCH (09:35)
[2016-06-01] MEDS: MONTELUKAST 10 MG TABLET PO SCH (09:35)
[2016-06-01] MEDS: POLYETHYLENE GLYCOL 17 GM PACKET PO SCH (09:35)
[2016-06-01] MEDS: CHOLECALCIFEROL 1,000 UNIT TABLET PO SCH (09:35)
[2016-06-01] MEDS: CARVEDILOL 12.5 MG TABLET PO SCH ×2 (09:35→21:56)
[2016-06-01] MEDS: INSULIN DETEMIR 100 UNITS/ML, PEN SQ-INSULIN SCH (09:50)
[2016-06-01] MEDS: FLUCONAZOLE 400 MG/200 ML 200 ML IV SCH (12:25)
[2016-06-01 13:54] VITALS: BP 146/48
[2016-06-01 20:23] VITALS: BP 156/49
[2016-06-01] MEDS: NICOTINE 14MG/24 HR PATCH.TD24 TD SCH (21:00)
[2016-06-01] MEDS: LOVASTATIN 40 MG TABLET PO SCH (21:56)
[2016-06-02 02:03] VITALS: BP 158/48
[2016-06-02] MEDS: ASPIRIN 81 MG TABLET EC PO SCH (03:43)
[2016-06-02] MEDS: CEFTAROLINE 600 MG in SODIUM CHLORIDE 0.9% 100 ML IV SCH ×2 (03:43→16:24)
[2016-06-02 05:48] LABS: BLOOD UREA NITROGEN 15 mg/dL (7-18)
[2016-06-02 07:54] VITALS: BP 143/72
[2016-06-02] MEDS: INSULIN ASPART 100 UNITS/ML, PEN SQ-INSULIN SCH ×4 (08:04→20:53)
[2016-06-02] MEDS: INSULIN DETEMIR 100 UNITS/ML, PEN SQ-INSULIN SCH (08:41)
[2016-06-02] MEDS: CLOPIDOGREL 75 MG TABLET PO SCH (08:41)
[2016-06-02] MEDS: LACTOBACILLUS CHEW TABLET PO SCH ×3 (08:41→20:52)
[2016-06-02] MEDS: AMLODIPINE 5 MG TABLET PO SCH (08:42)
[2016-06-02] MEDS: CHOLECALCIFEROL 1,000 UNIT TABLET PO SCH (08:42)
[2016-06-02] MEDS: POLYETHYLENE GLYCOL 17 GM PACKET PO SCH (08:42)
[2016-06-02] MEDS: CARVEDILOL 12.5 MG TABLET PO SCH ×2 (08:42→20:52)
[2016-06-02] MEDS: ISOSORBIDE MONONITRATE ER 60 MG TABLET PO SCH (08:42)
[2016-06-02] MEDS: LISINOPRIL 20 MG TABLET PO SCH (08:42)
[2016-06-02] MEDS: MONTELUKAST 10 MG TABLET PO SCH (08:42)
[2016-06-02] MEDS: SODIUM CHLORIDE FLUSH 10ML SYR IVF SCH ×2 (08:43→20:51)
[2016-06-02] MEDS ORDERED: INSULIN DETEMIR 100 UNITS/ML, PEN SQ-INSULIN ONE (11:00)
[2016-06-02] MEDS: FLUCONAZOLE 400 MG/200 ML 200 ML IV SCH (12:18)
[2016-06-02 13:06] VITALS: BP 131/51
[2016-06-02 18:52] VITALS: BP 149/58
[2016-06-02] MEDS: NICOTINE 14MG/24 HR PATCH.TD24 TD SCH (20:19)
[2016-06-02] MEDS: LOVASTATIN 40 MG TABLET PO SCH (20:52)
[2016-06-03 02:00] VITALS: BP 144/54
[2016-06-03] MEDS: ASPIRIN 81 MG TABLET EC PO SCH (03:13)
[2016-06-03] MEDS: CEFTAROLINE 600 MG in SODIUM CHLORIDE 0.9% 100 ML IV SCH (03:13)
[2016-06-03 06:17] LABS: BLOOD UREA NITROGEN 13 mg/dL (7-18)
[2016-06-03 06:59] VITALS: BP 156/47
[2016-06-03] MEDS: INSULIN DETEMIR 100 UNITS/ML, PEN SQ-INSULIN SCH (07:58)
[2016-06-03] MEDS: INSULIN ASPART 100 UNITS/ML, PEN SQ-INSULIN SCH ×4 (07:59→20:54)
[2016-06-03] MEDS: SODIUM CHLORIDE FLUSH 10ML SYR IVF SCH ×2 (07:59→20:53)
[2016-06-03] MEDS: POLYETHYLENE GLYCOL 17 GM PACKET PO SCH (07:59)
[2016-06-03] MEDS: LACTOBACILLUS CHEW TABLET PO SCH ×3 (10:06→20:53)
[2016-06-03] MEDS: MONTELUKAST 10 MG TABLET PO SCH (10:06)
[2016-06-03] MEDS: LISINOPRIL 20 MG TABLET PO SCH (10:06)
[2016-06-03] MEDS: CARVEDILOL 12.5 MG TABLET PO SCH ×2 (10:06→20:53)
[2016-06-03] MEDS: CHOLECALCIFEROL 1,000 UNIT TABLET PO SCH (10:06)
[2016-06-03] MEDS: CLOPIDOGREL 75 MG TABLET PO SCH (10:06)
[2016-06-03] MEDS: AMLODIPINE 5 MG TABLET PO SCH (10:06)
[2016-06-03] MEDS: ISOSORBIDE MONONITRATE ER 60 MG TABLET PO SCH (10:07)
[2016-06-03] MEDS: PANTOPRAZOLE 20MG TABLET PO SCH (12:17)
[2016-06-03] MEDS: DIPHENOXYLATE/ATROPINE TABLET PO PRN (12:17)
[2016-06-03] MEDS: ACETAMINOPHEN 325 MG TABLET PO PRN (12:17)
[2016-06-03 12:51] VITALS: BP 145/48
[2016-06-03] MEDS: ERYTHROMYCIN 500 MG in SODIUM CHLORIDE 0.9% 100 ML IV SCH ×2 (13:02→17:40)
[2016-06-03 19:43] VITALS: BP 141/48
[2016-06-03] MEDS: NICOTINE 14MG/24 HR PATCH.TD24 TD SCH (20:40)
[2016-06-03] MEDS: LOVASTATIN 40 MG TABLET PO SCH (20:53)
[2016-06-04] MEDS: ERYTHROMYCIN 500 MG in SODIUM CHLORIDE 0.9% 100 ML IV SCH ×5 (00:55→23:33)
[2016-06-04 02:26] VITALS: BP 144/57
[2016-06-04] MEDS: ASPIRIN 81 MG TABLET EC PO SCH (06:21)
[2016-06-04 07:02] VITALS: BP 151/55
[2016-06-04] MEDS: ACETAMINOPHEN 325 MG TABLET PO PRN ×2 (07:23→23:38)
[2016-06-04] MEDS: INSULIN ASPART 100 UNITS/ML, PEN SQ-INSULIN SCH ×4 (09:37→21:31)
[2016-06-04] MEDS: INSULIN DETEMIR 100 UNITS/ML, PEN SQ-INSULIN SCH (09:37)
[2016-06-04] MEDS: PANTOPRAZOLE 20MG TABLET PO SCH (09:38)
[2016-06-04] MEDS: AMLODIPINE 5 MG TABLET PO SCH (09:38)
[2016-06-04] MEDS: SODIUM CHLORIDE FLUSH 10ML SYR IVF SCH ×2 (09:38→21:30)
[2016-06-04] MEDS: CARVEDILOL 12.5 MG TABLET PO SCH ×2 (09:38→21:31)
[2016-06-04] MEDS: CLOPIDOGREL 75 MG TABLET PO SCH (09:39)
[2016-06-04] MEDS: LACTOBACILLUS CHEW TABLET PO SCH ×3 (09:39→21:31)
[2016-06-04] MEDS: LISINOPRIL 20 MG TABLET PO SCH (09:39)
[2016-06-04] MEDS: ISOSORBIDE MONONITRATE ER 60 MG TABLET PO SCH (09:39)
[2016-06-04] MEDS: MONTELUKAST 10 MG TABLET PO SCH (09:40)
[2016-06-04] MEDS: CHOLECALCIFEROL 1,000 UNIT TABLET PO SCH (09:40)
[2016-06-04] MEDS: DIPHENOXYLATE/ATROPINE TABLET PO PRN ×2 (12:04→21:32)
[2016-06-04 14:35] VITALS: BP 129/50
[2016-06-04 18:54] VITALS: BP 140/55
[2016-06-04] MEDS: LOVASTATIN 40 MG TABLET PO SCH (21:31)
[2016-06-04] MEDS: NICOTINE 14MG/24 HR PATCH.TD24 TD SCH (21:32)
[2016-06-05 05:05] VITALS: BP 152/59
[2016-06-05] MEDS: ERYTHROMYCIN 500 MG in SODIUM CHLORIDE 0.9% 100 ML IV SCH ×3 (05:38→19:45)
[2016-06-05 06:18] LABS: BLOOD UREA NITROGEN 14 mg/dL (7-18)
[2016-06-05] MEDS: ASPIRIN 81 MG TABLET EC PO SCH (06:33)
[2016-06-05 08:27] VITALS: BP 149/54
[2016-06-05] MEDS: INSULIN ASPART 100 UNITS/ML, PEN SQ-INSULIN SCH ×4 (08:50→21:00)
[2016-06-05] MEDS: PANTOPRAZOLE 20MG TABLET PO SCH (09:59)
[2016-06-05] MEDS: SODIUM CHLORIDE FLUSH 10ML SYR IVF SCH ×2 (10:00→21:00)
[2016-06-05] MEDS: INSULIN DETEMIR 100 UNITS/ML, PEN SQ-INSULIN SCH (10:00)
[2016-06-05] MEDS: LACTOBACILLUS CHEW TABLET PO SCH ×3 (10:01→21:07)
[2016-06-05] MEDS: ISOSORBIDE MONONITRATE ER 60 MG TABLET PO SCH (10:01)
[2016-06-05] MEDS: CARVEDILOL 12.5 MG TABLET PO SCH ×2 (10:01→21:07)
[2016-06-05] MEDS: LISINOPRIL 20 MG TABLET PO SCH (10:02)
[2016-06-05] MEDS: CLOPIDOGREL 75 MG TABLET PO SCH (10:02)
[2016-06-05] MEDS: AMLODIPINE 5 MG TABLET PO SCH (10:02)
[2016-06-05] MEDS: CHOLECALCIFEROL 1,000 UNIT TABLET PO SCH (10:03)
[2016-06-05] MEDS: MONTELUKAST 10 MG TABLET PO SCH (10:03)
[2016-06-05] MEDS: DIPHENOXYLATE/ATROPINE TABLET PO PRN (10:13)
[2016-06-05 15:22] VITALS: BP 145/46
[2016-06-05 19:00] VITALS: BP 153/62
[2016-06-05] MEDS: NICOTINE 14MG/24 HR PATCH.TD24 TD SCH (21:00)
[2016-06-05] MEDS: LOVASTATIN 40 MG TABLET PO SCH (21:09)
[2016-06-06] MEDS: ACETAMINOPHEN 325 MG TABLET PO PRN (01:59)
[2016-06-06] MEDS: ERYTHROMYCIN 500 MG in SODIUM CHLORIDE 0.9% 100 ML IV SCH ×2 (01:59→08:11)
[2016-06-06 04:55] VITALS: BP 151/54
[2016-06-06 05:41] LABS: BLOOD UREA NITROGEN 18 mg/dL (7-18)
[2016-06-06] MEDS: ASPIRIN 81 MG TABLET EC PO SCH (06:00)
[2016-06-06] MEDS: INSULIN ASPART 100 UNITS/ML, PEN SQ-INSULIN SCH ×4 (07:40→21:15)
[2016-06-06 08:08] VITALS: BP 150/54
[2016-06-06] MEDS: CARVEDILOL 12.5 MG TABLET PO SCH ×2 (08:10→21:14)
[2016-06-06] MEDS: PANTOPRAZOLE 20MG TABLET PO SCH (08:10)
[2016-06-06] MEDS: CLOPIDOGREL 75 MG TABLET PO SCH (08:10)
[2016-06-06] MEDS: MONTELUKAST 10 MG TABLET PO SCH (08:11)
[2016-06-06] MEDS: LISINOPRIL 20 MG TABLET PO SCH (08:11)
[2016-06-06] MEDS: AMLODIPINE 5 MG TABLET PO SCH (08:11)
[2016-06-06] MEDS: LACTOBACILLUS CHEW TABLET PO SCH ×3 (08:11→21:14)
[2016-06-06] MEDS: CHOLECALCIFEROL 1,000 UNIT TABLET PO SCH (08:11)
[2016-06-06] MEDS: INSULIN DETEMIR 100 UNITS/ML, PEN SQ-INSULIN SCH (08:12)
[2016-06-06] MEDS: SODIUM CHLORIDE FLUSH 10ML SYR IVF SCH ×2 (08:12→21:13)
[2016-06-06] MEDS: ISOSORBIDE MONONITRATE ER 60 MG TABLET PO SCH (08:29)
[2016-06-06] MEDS: DIPHENOXYLATE/ATROPINE TABLET PO PRN (12:05)
[2016-06-06] MEDS ORDERED: INSULIN ASPART 100 UNITS/ML, PEN SQ-INSULIN ONE (13:30)
[2016-06-06 13:47] VITALS: BP 141/56
[2016-06-06] MEDS ORDERED: VANCOMYCIN PER PHARMACY MC PRN (14:00)
[2016-06-06] MEDS ORDERED: PHARMACOKINETIC CONSULTATION MC ONE (14:00)
[2016-06-06] MEDS ORDERED: PHARMACOKINETIC MONITORING MC PRN (14:00)
[2016-06-06] MEDS: VANCOMYCIN 1,300 MG in SODIUM CHLORIDE 0.9% 250 ML IV SCH (14:04)
[2016-06-06] MEDS: ENOXAPARIN 40 MG/0.4 ML SQ SCH (14:05)
[2016-06-06 20:20] VITALS: BP 163/53
[2016-06-06] MEDS: LOVASTATIN 40 MG TABLET PO SCH (21:14)
[2016-06-06] MEDS: NICOTINE 14MG/24 HR PATCH.TD24 TD SCH (21:16)
[2016-06-06] MEDS ORDERED: OMNIPAQUE 350 MG/ML, 100ML BOTTLE ONE (22:00)
[2016-06-07 00:29] VITALS: BP 170/54
[2016-06-07] MEDS: DIPHENOXYLATE/ATROPINE TABLET PO PRN ×3 (00:37→22:12)
[2016-06-07] MEDS: PANTOPRAZOLE 20MG TABLET PO SCH (06:59)
[2016-06-07 07:33] VITALS: BP 159/61
[2016-06-07] MEDS: LACTOBACILLUS CHEW TABLET PO SCH ×3 (08:40→21:44)
[2016-06-07] MEDS: CHOLECALCIFEROL 1,000 UNIT TABLET PO SCH (08:40)
[2016-06-07] MEDS: AMLODIPINE 5 MG TABLET PO SCH (08:40)
[2016-06-07] MEDS: LISINOPRIL 20 MG TABLET PO SCH (08:40)
[2016-06-07] MEDS: MONTELUKAST 10 MG TABLET PO SCH (08:40)
[2016-06-07] MEDS: CLOPIDOGREL 75 MG TABLET PO SCH (08:40)
[2016-06-07] MEDS: CARVEDILOL 12.5 MG TABLET PO SCH ×2 (08:41→21:44)
[2016-06-07] MEDS: INSULIN ASPART 100 UNITS/ML, PEN SQ-INSULIN SCH ×5 (08:42→21:00)
[2016-06-07] MEDS: INSULIN DETEMIR 100 UNITS/ML, PEN SQ-INSULIN SCH (08:42)
[2016-06-07] MEDS: ISOSORBIDE MONONITRATE ER 60 MG TABLET PO SCH (08:44)
[2016-06-07] MEDS: SODIUM CHLORIDE FLUSH 10ML SYR IVF SCH ×2 (08:45→21:43)
[2016-06-07] MEDS ORDERED: INSULIN ASPART 100 UNITS/ML, PEN SQ-INSULIN ONE (12:30)
[2016-06-07] MEDS: ENOXAPARIN 40 MG/0.4 ML SQ SCH (14:10)
[2016-06-07] MEDS: VANCOMYCIN 1,300 MG in SODIUM CHLORIDE 0.9% 250 ML IV SCH (14:10)
[2016-06-07 14:52] VITALS: BP 119/48
[2016-06-07] MEDS: NICOTINE 14MG/24 HR PATCH.TD24 TD SCH (19:09)
[2016-06-07 20:30] VITALS: BP 143/50
[2016-06-07] MEDS: LOVASTATIN 40 MG TABLET PO SCH (21:44)
[2016-06-08 02:45] VITALS: BP 149/51
[2016-06-08] MEDS: INSULIN ASPART 100 UNITS/ML, PEN SQ-INSULIN SCH ×4 (03:09→21:04)
[2016-06-08] MEDS: ISOSORBIDE MONONITRATE ER 60 MG TABLET PO SCH (07:52)
[2016-06-08] MEDS: PANTOPRAZOLE 20MG TABLET PO SCH (07:53)
[2016-06-08] MEDS: LISINOPRIL 20 MG TABLET PO SCH (07:54)
[2016-06-08] MEDS: CARVEDILOL 12.5 MG TABLET PO SCH ×2 (07:54→20:59)
[2016-06-08] MEDS: MONTELUKAST 10 MG TABLET PO SCH (07:54)
[2016-06-08] MEDS: CLOPIDOGREL 75 MG TABLET PO SCH (07:54)
[2016-06-08] MEDS: AMLODIPINE 5 MG TABLET PO SCH (07:54)
[2016-06-08] MEDS: CHOLECALCIFEROL 1,000 UNIT TABLET PO SCH (07:54)
[2016-06-08] MEDS: SODIUM CHLORIDE FLUSH 10ML SYR IVF SCH ×2 (07:54→20:59)
[2016-06-08] MEDS: LACTOBACILLUS CHEW TABLET PO SCH ×3 (07:54→20:58)
[2016-06-08] MEDS: INSULIN DETEMIR 100 UNITS/ML, PEN SQ-INSULIN SCH (07:55)
[2016-06-08 08:03] VITALS: BP 148/56
[2016-06-08] MEDS: ACETAMINOPHEN 325 MG TABLET PO PRN ×2 (09:44→16:59)
[2016-06-08] MEDS: ENOXAPARIN 40 MG/0.4 ML SQ SCH (13:30)
[2016-06-08] MEDS: VANCOMYCIN 1,300 MG in SODIUM CHLORIDE 0.9% 250 ML IV SCH (14:45)
[2016-06-08 16:34] VITALS: BP 129/44
[2016-06-08] MEDS: NICOTINE 14MG/24 HR PATCH.TD24 TD SCH (19:18)
[2016-06-08 20:08] VITALS: BP 126/49
[2016-06-08] MEDS: LOVASTATIN 40 MG TABLET PO SCH (20:58)
[2016-06-09 03:24] VITALS: BP 159/53
[2016-06-09] MEDS: INSULIN ASPART 100 UNITS/ML, PEN SQ-INSULIN SCH ×4 (03:27→21:16)
[2016-06-09 06:16] LABS: BLOOD UREA NITROGEN 16 mg/dL (7-18)
[2016-06-09] MEDS ORDERED: POTASSIUM CHLORIDE 40 MEQ in SODIUM CHLORIDE 0.9% 500 ML IV ONE (07:00)
[2016-06-09 07:21] VITALS: BP 157/55
[2016-06-09 07:33] LABS: TOTAL IRON BINDING CAPACITY 277 mcg/dL (250-450)
[2016-06-09] MEDS: INSULIN DETEMIR 100 UNITS/ML, PEN SQ-INSULIN SCH (07:56)
[2016-06-09] MEDS ORDERED: INSULIN ASPART 100 UNITS/ML, PEN SQ-INSULIN SCH (09:00)
[2016-06-09] MEDS: LACTOBACILLUS CHEW TABLET PO SCH ×3 (09:14→20:58)
[2016-06-09] MEDS: CLOPIDOGREL 75 MG TABLET PO SCH (09:14)
[2016-06-09] MEDS: AMLODIPINE 5 MG TABLET PO SCH (09:14)
[2016-06-09] MEDS: CARVEDILOL 12.5 MG TABLET PO SCH ×2 (09:14→20:57)
[2016-06-09] MEDS: PANTOPRAZOLE 20MG TABLET PO SCH (09:14)
[2016-06-09] MEDS: CHOLECALCIFEROL 1,000 UNIT TABLET PO SCH (09:15)
[2016-06-09] MEDS: MONTELUKAST 10 MG TABLET PO SCH (09:15)
[2016-06-09] MEDS: LISINOPRIL 20 MG TABLET PO SCH (09:15)
[2016-06-09] MEDS: ISOSORBIDE MONONITRATE ER 60 MG TABLET PO SCH (09:16)
[2016-06-09] MEDS: SODIUM CHLORIDE FLUSH 10ML SYR IVF SCH ×2 (09:16→20:59)
[2016-06-09] MEDS: IRON SUCROSE COMPLEX 100MG/5ML IV SCH (11:02)
[2016-06-09 12:36] VITALS: BP 128/44
[2016-06-09] MEDS: ENOXAPARIN 40 MG/0.4 ML SQ SCH (13:59)
[2016-06-09] MEDS: VANCOMYCIN 1,300 MG in SODIUM CHLORIDE 0.9% 250 ML IV SCH (14:15)
[2016-06-09 15:52] LABS: BLOOD UREA NITROGEN 18 mg/dL (7-18)
[2016-06-09] MEDS: NICOTINE 14MG/24 HR PATCH.TD24 TD SCH (19:00)
[2016-06-09 20:54] VITALS: BP 158/56
[2016-06-09] MEDS: LOVASTATIN 40 MG TABLET PO SCH (20:57)
[2016-06-09] MEDS: DIPHENOXYLATE/ATROPINE TABLET PO PRN (20:58)
[2016-06-09] MEDS: PROMETHAZINE 25MG TABLET PO PRN (23:26)
[2016-06-10 03:21] VITALS: BP 153/53
[2016-06-10] MEDS: INSULIN ASPART 100 UNITS/ML, PEN SQ-INSULIN SCH ×5 (03:27→22:09)
[2016-06-10 07:10] VITALS: BP 160/56
[2016-06-10] MEDS ORDERED: FENTANYL PF 100 MCG/2ML ONE (07:15)
[2016-06-10] MEDS ORDERED: VERAPAMIL 2.5 MG/ML, 2ML ONE (07:15)
[2016-06-10] MEDS ORDERED: MIDAZOLAM 1 MG/ML, 5ML ONE (07:15)
[2016-06-10] MEDS ORDERED: NITROGLYCERIN 5 MG/ML, 10ML ONE (07:15)
[2016-06-10] MEDS: PANTOPRAZOLE 20MG TABLET PO SCH (07:15)
[2016-06-10] MEDS ORDERED: PROTAMINE SULFATE 10 MG/ML, 25ML ONE (07:15)
[2016-06-10] MEDS ORDERED: FLUMAZENIL 0.1 MG/1 ML, 5ML ONE (07:16)
[2016-06-10] MEDS ORDERED: HEPARIN 1,000 UNITS/ML, 10ML ONE (07:16)
[2016-06-10] MEDS ORDERED: NALOXONE 1 MG/ML, 2ML ONE (07:16)
[2016-06-10] MEDS ORDERED: LIDOCAINE 2%, 20ML ONE (07:37)
[2016-06-10] MEDS ORDERED: VISIPAQUE 270 MG/ML, 150ML BOTTLE ONE (08:00)
[2016-06-10] MEDS ORDERED: hydrALAzine 20 MG/ML, 1ML ONE (08:29)
[2016-06-10] MEDS: LISINOPRIL 20 MG TABLET PO SCH (09:52)
[2016-06-10] MEDS: SODIUM CHLORIDE FLUSH 10ML SYR IVF SCH ×2 (09:52→22:03)
[2016-06-10] MEDS: MONTELUKAST 10 MG TABLET PO SCH (09:52)
[2016-06-10] MEDS: INSULIN DETEMIR 100 UNITS/ML, PEN SQ-INSULIN SCH (09:52)
[2016-06-10] MEDS: IRON SUCROSE COMPLEX 100MG/5ML IV SCH (09:52)
[2016-06-10] MEDS: LACTOBACILLUS CHEW TABLET PO SCH ×3 (09:52→22:02)
[2016-06-10] MEDS: CHOLECALCIFEROL 1,000 UNIT TABLET PO SCH (09:53)
[2016-06-10] MEDS: ISOSORBIDE MONONITRATE ER 60 MG TABLET PO SCH (09:53)
[2016-06-10] MEDS: AMLODIPINE 5 MG TABLET PO SCH (09:53)
[2016-06-10] MEDS: CLOPIDOGREL 75 MG TABLET PO SCH (09:54)
[2016-06-10] MEDS: CARVEDILOL 12.5 MG TABLET PO SCH ×2 (09:54→22:02)
[2016-06-10 12:57] VITALS: BP 122/41
[2016-06-10] MEDS: VANCOMYCIN 1,300 MG in SODIUM CHLORIDE 0.9% 250 ML IV SCH (15:58)
[2016-06-10] MEDS: ENOXAPARIN 40 MG/0.4 ML SQ SCH (15:59)
[2016-06-10 19:16] VITALS: BP 136/53
[2016-06-10] MEDS: NICOTINE 14MG/24 HR PATCH.TD24 TD SCH (21:00)
[2016-06-10] MEDS: LOVASTATIN 40 MG TABLET PO SCH (22:02)
[2016-06-11 02:37] VITALS: BP 151/61
[2016-06-11] MEDS: PROMETHAZINE 25MG TABLET PO PRN (04:46)
[2016-06-11 06:30] VITALS: BP 119/74
[2016-06-11 06:46] LABS: BLOOD UREA NITROGEN 16 mg/dL (7-18)
[2016-06-11] MEDS ORDERED: FENTANYL PF 250 MCG/5ML ONE (06:47)
[2016-06-11] MEDS ORDERED: MIDAZOLAM 1 MG/ML, 2ML ONE (06:48)
[2016-06-11] MEDS ORDERED: INSULIN SINGLE DOSE, ER SQ-INSULIN ONE ×3 (07:03→08:27)
[2016-06-11] MEDS ORDERED: ONDANSETRON 2MG/ML, 2ML ONE (07:21)
[2016-06-11] MEDS ORDERED: PROPOFOL 10 MG/ML, 20ML ONE (07:21)
[2016-06-11] MEDS: INSULIN ASPART 100 UNITS/ML, PEN SQ-INSULIN SCH ×4 (07:28→21:00)
[2016-06-11] MEDS ORDERED: LIDOCAINE 1%-EPI 1:100K, 50ML ONE (07:34)
[2016-06-11] MEDS ORDERED: LIDOCAINE 1%-EPI 1:100K, 50ML INFIL ONE (07:35)
[2016-06-11] MEDS ORDERED: MIDAZOLAM 1 MG/ML, 2ML IV PRN (08:00)
[2016-06-11] MEDS ORDERED: ONDANSETRON 2MG/ML, 2ML IVPush PRN (08:00)
[2016-06-11] MEDS ORDERED: LABETALOL 5MG/ML, 20ML IV PRN (08:00)
[2016-06-11] MEDS ORDERED: ACETAMINOPHEN 325 MG TABLET PO PRN (08:00)
[2016-06-11] MEDS ORDERED: OXYcodone 5 MG/5 ML ORAL.SOL UDC PO PRN (08:00)
[2016-06-11] MEDS ORDERED: HYDROmorphone 1 MG/ML, 1ML IV PRN (08:00)
[2016-06-11] MEDS ORDERED: hydrALAzine 20 MG/ML, 1ML IV PRN (08:00)
[2016-06-11] MEDS ORDERED: MEPERIDINE/PF 25MG/0.5ML IVPush PRN (08:00)
[2016-06-11] MEDS ORDERED: FENTANYL PF 100 MCG/2ML IV PRN (08:00)
[2016-06-11] MEDS ORDERED: PROMETHAZINE 25 MG/ML, 1ML IV PRN (08:00)
[2016-06-11] MEDS ORDERED: FENTANYL PF 100 MCG/2ML ONE (08:33)
[2016-06-11] MEDS ORDERED: ACETAMINOPHEN 650 MG/20.3 ML UDC ONE (08:33)
[2016-06-11] MEDS ORDERED: OXYcodone 5 MG/5 ML ORAL.SOL UDC ONE (08:34)
[2016-06-11] MEDS ORDERED: INSULIN REGULAR 100 UNITS/ML, 3ML VIAL SQ-INSULIN ONE (09:00)
[2016-06-11 09:45] VITALS: BP 148/55
[2016-06-11] MEDS: IRON SUCROSE COMPLEX 100MG/5ML IV SCH (10:11)
[2016-06-11] MEDS: PANTOPRAZOLE 20MG TABLET PO SCH (10:11)
[2016-06-11] MEDS: SODIUM CHLORIDE FLUSH 10ML SYR IVF SCH ×2 (10:12→21:35)
[2016-06-11] MEDS: INSULIN DETEMIR 100 UNITS/ML, PEN SQ-INSULIN SCH (10:12)
[2016-06-11] MEDS: CLOPIDOGREL 75 MG TABLET PO SCH (10:13)
[2016-06-11] MEDS: CHOLECALCIFEROL 1,000 UNIT TABLET PO SCH (10:13)
[2016-06-11] MEDS: AMLODIPINE 5 MG TABLET PO SCH (10:13)
[2016-06-11] MEDS: MONTELUKAST 10 MG TABLET PO SCH (10:13)
[2016-06-11] MEDS: CARVEDILOL 12.5 MG TABLET PO SCH ×2 (10:13→21:34)
[2016-06-11] MEDS: LACTOBACILLUS CHEW TABLET PO SCH ×3 (10:13→21:34)
[2016-06-11] MEDS: LISINOPRIL 20 MG TABLET PO SCH (10:13)
[2016-06-11] MEDS: ISOSORBIDE MONONITRATE ER 60 MG TABLET PO SCH (10:14)
[2016-06-11] MEDS: morphine SULFATE 10 MG/ML, 1ML IVPush PRN (10:19)
[2016-06-11 14:25] VITALS: BP 94/42
[2016-06-11] MEDS: VANCOMYCIN 1,300 MG in SODIUM CHLORIDE 0.9% 250 ML IV SCH (15:38)
[2016-06-11] MEDS: ENOXAPARIN 40 MG/0.4 ML SQ SCH (17:03)
[2016-06-11 19:59] VITALS: BP 109/49
[2016-06-11] MEDS: NICOTINE 14MG/24 HR PATCH.TD24 TD SCH (21:00)
[2016-06-11] MEDS: OXYcodone/APAP 5/325MG TABLET PO PRN (21:33)
[2016-06-11] MEDS: LOVASTATIN 40 MG TABLET PO SCH (21:34)
[2016-06-12] MEDS: OXYcodone/APAP 5/325MG TABLET PO PRN ×3 (02:40→21:29)
[2016-06-12] MEDS: morphine SULFATE 10 MG/ML, 1ML IVPush PRN (02:58)
[2016-06-12 03:46] VITALS: BP 137/49
[2016-06-12 06:54] VITALS: BP 135/47
[2016-06-12] MEDS: PANTOPRAZOLE 20MG TABLET PO SCH (07:53)
[2016-06-12] MEDS: INSULIN ASPART 100 UNITS/ML, PEN SQ-INSULIN SCH ×4 (07:53→21:00)
[2016-06-12] MEDS: INSULIN DETEMIR 100 UNITS/ML, PEN SQ-INSULIN SCH (10:39)
[2016-06-12] MEDS: CHOLECALCIFEROL 1,000 UNIT TABLET PO SCH (10:40)
[2016-06-12] MEDS: CARVEDILOL 12.5 MG TABLET PO SCH ×2 (10:40→21:01)
[2016-06-12] MEDS: MONTELUKAST 10 MG TABLET PO SCH (10:40)
[2016-06-12] MEDS: LISINOPRIL 20 MG TABLET PO SCH (10:40)
[2016-06-12] MEDS: AMLODIPINE 5 MG TABLET PO SCH (10:40)
[2016-06-12] MEDS: ISOSORBIDE MONONITRATE ER 60 MG TABLET PO SCH (10:40)
[2016-06-12] MEDS: IRON SUCROSE COMPLEX 100MG/5ML IV SCH (10:40)
[2016-06-12] MEDS: CLOPIDOGREL 75 MG TABLET PO SCH (10:40)
[2016-06-12] MEDS: SODIUM CHLORIDE FLUSH 10ML SYR IVF SCH ×2 (10:45→21:01)
[2016-06-12] MEDS: LACTOBACILLUS CHEW TABLET PO SCH ×3 (10:45→21:02)
[2016-06-12 14:18] VITALS: BP 113/38
[2016-06-12] MEDS: VANCOMYCIN 1,300 MG in SODIUM CHLORIDE 0.9% 250 ML IV SCH (16:33)
[2016-06-12] MEDS: ENOXAPARIN 40 MG/0.4 ML SQ SCH (16:33)
[2016-06-12] MEDS: NICOTINE 14MG/24 HR PATCH.TD24 TD SCH (21:00)
[2016-06-12] MEDS: LOVASTATIN 40 MG TABLET PO SCH (21:02)
[2016-06-12 21:21] VITALS: BP 133/46
[2016-06-13 00:13] VITALS: BP 150/49
[2016-06-13] MEDS: morphine SULFATE 10 MG/ML, 1ML IVPush PRN ×3 (00:31→15:44)
[2016-06-13] MEDS: PROMETHAZINE 25MG TABLET PO PRN (00:32)
[2016-06-13] MEDS: OXYcodone/APAP 5/325MG TABLET PO PRN ×3 (03:19→22:27)
[2016-06-13 05:12] LABS: BLOOD UREA NITROGEN 21 mg/dL (7-18)
[2016-06-13 07:51] VITALS: BP 165/53
[2016-06-13] MEDS: CLOPIDOGREL 75 MG TABLET PO SCH (08:19)
[2016-06-13] MEDS: MONTELUKAST 10 MG TABLET PO SCH (08:19)
[2016-06-13] MEDS: ISOSORBIDE MONONITRATE ER 60 MG TABLET PO SCH (08:19)
[2016-06-13] MEDS: LISINOPRIL 20 MG TABLET PO SCH (08:19)
[2016-06-13] MEDS: AMLODIPINE 5 MG TABLET PO SCH (08:19)
[2016-06-13] MEDS: LACTOBACILLUS CHEW TABLET PO SCH ×3 (08:19→20:49)
[2016-06-13] MEDS: CHOLECALCIFEROL 1,000 UNIT TABLET PO SCH (08:19)
[2016-06-13] MEDS: PANTOPRAZOLE 20MG TABLET PO SCH (08:19)
[2016-06-13] MEDS: INSULIN ASPART 100 UNITS/ML, PEN SQ-INSULIN SCH ×4 (08:20→20:49)
[2016-06-13] MEDS: CARVEDILOL 12.5 MG TABLET PO SCH ×2 (08:20→20:49)
[2016-06-13] MEDS: INSULIN DETEMIR 100 UNITS/ML, PEN SQ-INSULIN SCH (08:21)
[2016-06-13] MEDS: SODIUM CHLORIDE FLUSH 10ML SYR IVF SCH ×2 (08:21→20:44)
[2016-06-13] MEDS: DOCUSATE 100 MG CAPSULE PO SCH (12:00)
[2016-06-13 13:45] VITALS: BP 159/55
[2016-06-13] MEDS: VANCOMYCIN 1,300 MG in SODIUM CHLORIDE 0.9% 250 ML IV SCH (16:09)
[2016-06-13] MEDS: ENOXAPARIN 40 MG/0.4 ML SQ SCH (16:10)
[2016-06-13 18:45] VITALS: BP 143/46
[2016-06-13] MEDS: NICOTINE 14MG/24 HR PATCH.TD24 TD SCH (20:45)
[2016-06-13] MEDS: LOVASTATIN 40 MG TABLET PO SCH (20:49)
[2016-06-14 07:29] VITALS: BP 168/59
[2016-06-14] MEDS: PANTOPRAZOLE 20MG TABLET PO SCH (08:19)
[2016-06-14] MEDS: MONTELUKAST 10 MG TABLET PO SCH (08:20)
[2016-06-14] MEDS: CLOPIDOGREL 75 MG TABLET PO SCH (08:20)
[2016-06-14] MEDS: LISINOPRIL 20 MG TABLET PO SCH (08:21)
[2016-06-14] MEDS: CARVEDILOL 12.5 MG TABLET PO SCH ×2 (08:21→20:25)
[2016-06-14] MEDS: LACTOBACILLUS CHEW TABLET PO SCH ×3 (08:22→20:25)
[2016-06-14] MEDS: AMLODIPINE 5 MG TABLET PO SCH (08:23)
[2016-06-14] MEDS: CHOLECALCIFEROL 1,000 UNIT TABLET PO SCH (08:23)
[2016-06-14] MEDS: ISOSORBIDE MONONITRATE ER 60 MG TABLET PO SCH (08:24)
[2016-06-14] MEDS: INSULIN ASPART 100 UNITS/ML, PEN SQ-INSULIN SCH ×4 (08:25→20:34)
[2016-06-14] MEDS: INSULIN DETEMIR 100 UNITS/ML, PEN SQ-INSULIN SCH (08:26)
[2016-06-14] MEDS: SODIUM CHLORIDE FLUSH 10ML SYR IVF SCH ×2 (08:27→20:25)
[2016-06-14] MEDS: DOCUSATE 100 MG CAPSULE PO SCH (08:27)
[2016-06-14 14:16] VITALS: BP 145/50
[2016-06-14] MEDS: ENOXAPARIN 40 MG/0.4 ML SQ SCH (16:02)
[2016-06-14] MEDS: VANCOMYCIN 1,300 MG in SODIUM CHLORIDE 0.9% 250 ML IV SCH (16:03)
[2016-06-14] MEDS: OXYcodone/APAP 5/325MG TABLET PO PRN (16:10)
[2016-06-14 19:48] VITALS: BP 141/50
[2016-06-14] MEDS: LOVASTATIN 40 MG TABLET PO SCH (20:24)
[2016-06-14] MEDS: NICOTINE 14MG/24 HR PATCH.TD24 TD SCH (20:25)
[2016-06-15 01:25] VITALS: BP 141/58
[2016-06-15 03:17] LABS: BLOOD UREA NITROGEN 19 mg/dL (7-18)
[2016-06-15 03:25] LABS: ASPARTATE AMINO TRANSFERASE 17 U/L (15-37)
[2016-06-15] MEDS: PANTOPRAZOLE 20MG TABLET PO SCH (07:44)
[2016-06-15] MEDS: INSULIN DETEMIR 100 UNITS/ML, PEN SQ-INSULIN SCH ×2 (07:45→20:59)
[2016-06-15] MEDS: INSULIN ASPART 100 UNITS/ML, PEN SQ-INSULIN SCH ×4 (07:46→21:00)
[2016-06-15 08:59] VITALS: BP 151/59
[2016-06-15] MEDS: DOCUSATE 100 MG CAPSULE PO SCH (09:00)
[2016-06-15] MEDS: SODIUM CHLORIDE FLUSH 10ML SYR IVF SCH ×2 (09:28→21:00)
[2016-06-15] MEDS: ISOSORBIDE MONONITRATE ER 60 MG TABLET PO SCH (09:31)
[2016-06-15] MEDS: CARVEDILOL 12.5 MG TABLET PO SCH ×2 (09:31→20:59)
[2016-06-15] MEDS: AMLODIPINE 5 MG TABLET PO SCH (09:32)
[2016-06-15] MEDS: LACTOBACILLUS CHEW TABLET PO SCH ×3 (09:32→20:59)
[2016-06-15] MEDS: CLOPIDOGREL 75 MG TABLET PO SCH (09:33)
[2016-06-15] MEDS: CHOLECALCIFEROL 1,000 UNIT TABLET PO SCH (09:34)
[2016-06-15] MEDS: MONTELUKAST 10 MG TABLET PO SCH (09:34)
[2016-06-15] MEDS: LISINOPRIL 20 MG TABLET PO SCH (09:34)
[2016-06-15] MEDS: OXYcodone/APAP 5/325MG TABLET PO PRN (10:48)
[2016-06-15] MEDS: morphine SULFATE 10 MG/ML, 1ML IVPush PRN (11:40)
[2016-06-15 14:14] VITALS: BP 127/42
[2016-06-15] MEDS: ENOXAPARIN 40 MG/0.4 ML SQ SCH (16:47)
[2016-06-15] MEDS: VANCOMYCIN 1,300 MG in SODIUM CHLORIDE 0.9% 250 ML IV SCH (16:47)
[2016-06-15 20:03] VITALS: BP 133/53
[2016-06-15] MEDS: LOVASTATIN 40 MG TABLET PO SCH (20:59)
[2016-06-15] MEDS: NICOTINE 14MG/24 HR PATCH.TD24 TD SCH (21:00)
[2016-06-16 01:52] VITALS: BP 152/56
[2016-06-16] MEDS: PANTOPRAZOLE 20MG TABLET PO SCH (06:28)
[2016-06-16 06:45] VITALS: BP 157/53
[2016-06-16] MEDS: SODIUM CHLORIDE FLUSH 10ML SYR IVF SCH ×2 (08:25→21:00)
[2016-06-16] MEDS: LACTOBACILLUS CHEW TABLET PO SCH ×3 (08:26→20:49)
[2016-06-16] MEDS: AMLODIPINE 5 MG TABLET PO SCH (08:26)
[2016-06-16] MEDS: CARVEDILOL 12.5 MG TABLET PO SCH ×2 (08:26→20:49)
[2016-06-16] MEDS: INSULIN ASPART 100 UNITS/ML, PEN SQ-INSULIN SCH ×4 (08:26→21:15)
[2016-06-16] MEDS: INSULIN DETEMIR 100 UNITS/ML, PEN SQ-INSULIN SCH ×2 (08:26→21:15)
[2016-06-16] MEDS: CLOPIDOGREL 75 MG TABLET PO SCH (08:27)
[2016-06-16] MEDS: DOCUSATE 100 MG CAPSULE PO SCH (08:27)
[2016-06-16] MEDS: ISOSORBIDE MONONITRATE ER 60 MG TABLET PO SCH (08:27)
[2016-06-16] MEDS: CHOLECALCIFEROL 1,000 UNIT TABLET PO SCH (08:27)
[2016-06-16] MEDS: LISINOPRIL 20 MG TABLET PO SCH (08:27)
[2016-06-16] MEDS: MONTELUKAST 10 MG TABLET PO SCH (08:27)
[2016-06-16 14:21] VITALS: BP 141/72
[2016-06-16] MEDS: VANCOMYCIN 1,300 MG in SODIUM CHLORIDE 0.9% 250 ML IV SCH (17:02)
[2016-06-16] MEDS: ENOXAPARIN 40 MG/0.4 ML SQ SCH (17:03)
[2016-06-16 20:39] VITALS: BP 164/52
[2016-06-16] MEDS: LOVASTATIN 40 MG TABLET PO SCH (20:49)
[2016-06-16] MEDS: NICOTINE 14MG/24 HR PATCH.TD24 TD SCH (21:00)
[2016-06-17 03:18] VITALS: BP 157/53
[2016-06-17 04:58] LABS: BLOOD UREA NITROGEN 15 mg/dL (7-18)
[2016-06-17 07:45] VITALS: BP 157/62
[2016-06-17] MEDS: PANTOPRAZOLE 20MG TABLET PO SCH (07:49)
[2016-06-17] MEDS: INSULIN ASPART 100 UNITS/ML, PEN SQ-INSULIN SCH ×4 (07:49→21:23)
[2016-06-17] MEDS: AMLODIPINE 5 MG TABLET PO SCH (09:47)
[2016-06-17] MEDS: LACTOBACILLUS CHEW TABLET PO SCH ×3 (09:47→21:21)
[2016-06-17] MEDS: CARVEDILOL 12.5 MG TABLET PO SCH ×2 (09:47→21:21)
[2016-06-17] MEDS: CHOLECALCIFEROL 1,000 UNIT TABLET PO SCH (09:47)
[2016-06-17] MEDS: LISINOPRIL 20 MG TABLET PO SCH (09:48)
[2016-06-17] MEDS: ISOSORBIDE MONONITRATE ER 60 MG TABLET PO SCH (09:48)
[2016-06-17] MEDS: MONTELUKAST 10 MG TABLET PO SCH (09:48)
[2016-06-17] MEDS: OXYcodone/APAP 5/325MG TABLET PO PRN ×2 (09:48→21:32)
[2016-06-17] MEDS: CLOPIDOGREL 75 MG TABLET PO SCH (09:48)
[2016-06-17] MEDS: SODIUM CHLORIDE FLUSH 10ML SYR IVF SCH ×2 (09:49→21:32)
[2016-06-17] MEDS: INSULIN DETEMIR 100 UNITS/ML, PEN SQ-INSULIN SCH ×2 (09:49→21:21)
[2016-06-17] MEDS: DOCUSATE 100 MG CAPSULE PO SCH (09:49)
[2016-06-17] MEDS: morphine SULFATE 10 MG/ML, 1ML IVPush PRN (11:26)
[2016-06-17 12:52] VITALS: BP 114/56
[2016-06-17] MEDS: ENOXAPARIN 40 MG/0.4 ML SQ SCH (15:58)
[2016-06-17 18:53] VITALS: BP 144/54
[2016-06-17] MEDS: NICOTINE 14MG/24 HR PATCH.TD24 TD SCH (21:00)
[2016-06-17] MEDS ORDERED: CATHFLO-ALTEPLASE 2 MG/2 ML CATHFLUSH ONE (22:00)
[2016-06-18 02:02] VITALS: BP 156/52
[2016-06-18 05:50] LABS: BLOOD UREA NITROGEN 20 mg/dL (7-18)
[2016-06-18 06:55] VITALS: BP 163/62
[2016-06-18] MEDS: PANTOPRAZOLE 20MG TABLET PO SCH (08:11)
[2016-06-18] MEDS: INSULIN ASPART 100 UNITS/ML, PEN SQ-INSULIN SCH ×4 (08:12→22:56)
[2016-06-18] MEDS: CHOLECALCIFEROL 1,000 UNIT TABLET PO SCH (09:31)
[2016-06-18] MEDS: MONTELUKAST 10 MG TABLET PO SCH (09:31)
[2016-06-18] MEDS: CARVEDILOL 12.5 MG TABLET PO SCH ×2 (09:31→22:38)
[2016-06-18] MEDS: LISINOPRIL 20 MG TABLET PO SCH (09:31)
[2016-06-18] MEDS: CLOPIDOGREL 75 MG TABLET PO SCH (09:31)
[2016-06-18] MEDS: AMLODIPINE 5 MG TABLET PO SCH (09:31)
[2016-06-18] MEDS: OXYcodone/APAP 5/325MG TABLET PO PRN (09:31)
[2016-06-18] MEDS: ISOSORBIDE MONONITRATE ER 60 MG TABLET PO SCH (09:31)
[2016-06-18] MEDS: INSULIN DETEMIR 100 UNITS/ML, PEN SQ-INSULIN SCH (09:32)
[2016-06-18] MEDS: LACTOBACILLUS CHEW TABLET PO SCH ×3 (09:32→22:38)
[2016-06-18] MEDS: DOCUSATE 100 MG CAPSULE PO SCH (09:34)
[2016-06-18] MEDS: DAPTOMYCIN 400 MG in SODIUM CHLORIDE 0.9% 100 ML IVPB SCH (10:52)
[2016-06-18] MEDS: SODIUM CHLORIDE FLUSH 10ML SYR IVF SCH ×2 (10:53→22:38)
[2016-06-18 12:36] VITALS: BP 124/58
[2016-06-18] MEDS: ENOXAPARIN 40 MG/0.4 ML SQ SCH (16:42)
[2016-06-18 18:45] VITALS: BP 132/50
[2016-06-18] MEDS: NICOTINE 14MG/24 HR PATCH.TD24 TD SCH (22:40)
[2016-06-18] MEDS: PROMETHAZINE 25MG TABLET PO PRN (22:57)
[2016-06-19 02:07] VITALS: BP 147/56
[2016-06-19 06:03] LABS: BLOOD UREA NITROGEN 19 mg/dL (7-18)
[2016-06-19 07:05] VITALS: BP 156/58
[2016-06-19] MEDS: SODIUM CHLORIDE FLUSH 10ML SYR IVF SCH ×2 (09:00→22:00)
[2016-06-19] MEDS: LACTOBACILLUS CHEW TABLET PO SCH ×3 (09:08→21:56)
[2016-06-19] MEDS: PANTOPRAZOLE 20MG TABLET PO SCH (09:08)
[2016-06-19] MEDS: CARVEDILOL 12.5 MG TABLET PO SCH ×2 (09:08→21:56)
[2016-06-19] MEDS: morphine SULFATE 10 MG/ML, 1ML IVPush PRN (09:08)
[2016-06-19] MEDS: CHOLECALCIFEROL 1,000 UNIT TABLET PO SCH (09:08)
[2016-06-19] MEDS: MONTELUKAST 10 MG TABLET PO SCH (09:08)
[2016-06-19] MEDS: DOCUSATE 100 MG CAPSULE PO SCH (09:08)
[2016-06-19] MEDS: CLOPIDOGREL 75 MG TABLET PO SCH (09:09)
[2016-06-19] MEDS: AMLODIPINE 5 MG TABLET PO SCH (09:09)
[2016-06-19] MEDS: LISINOPRIL 20 MG TABLET PO SCH (09:09)
[2016-06-19] MEDS: INSULIN ASPART 100 UNITS/ML, PEN SQ-INSULIN SCH ×4 (09:21→21:57)
[2016-06-19] MEDS: INSULIN DETEMIR 100 UNITS/ML, PEN SQ-INSULIN SCH ×2 (09:22→22:18)
[2016-06-19] MEDS: ISOSORBIDE MONONITRATE ER 60 MG TABLET PO SCH (12:16)
[2016-06-19 13:42] VITALS: BP 124/50
[2016-06-19] MEDS: DAPTOMYCIN 400 MG in SODIUM CHLORIDE 0.9% 100 ML IVPB SCH (13:57)
[2016-06-19] MEDS: OXYcodone/APAP 5/325MG TABLET PO PRN ×2 (14:02→21:58)
[2016-06-19] MEDS: ENOXAPARIN 40 MG/0.4 ML SQ SCH (17:32)
[2016-06-19 18:34] VITALS: BP 121/53
[2016-06-19] MEDS: NICOTINE 14MG/24 HR PATCH.TD24 TD SCH (21:15)
[2016-06-20 00:31] VITALS: BP 143/47
[2016-06-20 07:48] VITALS: BP 160/59
[2016-06-20] MEDS: INSULIN ASPART 100 UNITS/ML, PEN SQ-INSULIN SCH ×4 (08:07→20:53)
[2016-06-20] MEDS: INSULIN DETEMIR 100 UNITS/ML, PEN SQ-INSULIN SCH ×2 (08:08→20:50)
[2016-06-20] MEDS: ISOSORBIDE MONONITRATE ER 60 MG TABLET PO SCH (08:08)
[2016-06-20] MEDS: CLOPIDOGREL 75 MG TABLET PO SCH (08:09)
[2016-06-20] MEDS: CARVEDILOL 12.5 MG TABLET PO SCH ×2 (08:09→20:37)
[2016-06-20] MEDS: AMLODIPINE 5 MG TABLET PO SCH (08:09)
[2016-06-20] MEDS: MONTELUKAST 10 MG TABLET PO SCH (08:09)
[2016-06-20] MEDS: LACTOBACILLUS CHEW TABLET PO SCH ×3 (08:10→20:37)
[2016-06-20] MEDS: PANTOPRAZOLE 20MG TABLET PO SCH (08:10)
[2016-06-20] MEDS: CHOLECALCIFEROL 1,000 UNIT TABLET PO SCH (08:10)
[2016-06-20] MEDS: LISINOPRIL 20 MG TABLET PO SCH (08:10)
[2016-06-20] MEDS: SODIUM CHLORIDE FLUSH 10ML SYR IVF SCH ×2 (08:11→20:36)
[2016-06-20] MEDS: DOCUSATE 100 MG CAPSULE PO SCH (08:13)
[2016-06-20] MEDS: DAPTOMYCIN 400 MG in SODIUM CHLORIDE 0.9% 100 ML IVPB SCH (12:30)
[2016-06-20 13:50] VITALS: BP 146/40
[2016-06-20] MEDS: OXYcodone/APAP 5/325MG TABLET PO PRN ×2 (14:14→20:56)
[2016-06-20] MEDS: DIPHENOXYLATE/ATROPINE TABLET PO PRN (14:14)
[2016-06-20] MEDS: ENOXAPARIN 40 MG/0.4 ML SQ SCH (15:59)
[2016-06-20 19:23] VITALS: BP 167/60
[2016-06-20] MEDS: NICOTINE 14MG/24 HR PATCH.TD24 TD SCH (20:26)
[2016-06-21 01:38] VITALS: BP 162/71
[2016-06-21] MEDS: DEXTROSE 50%, 50ML SYRINGE IVPush PRN (02:15)
[2016-06-21] MEDS: OXYcodone/APAP 5/325MG TABLET PO PRN ×3 (06:41→20:50)
[2016-06-21] MEDS: INSULIN ASPART 100 UNITS/ML, PEN SQ-INSULIN SCH ×4 (06:57→20:47)
[2016-06-21 08:57] VITALS: BP 149/61
[2016-06-21] MEDS: PANTOPRAZOLE 20MG TABLET PO SCH (08:59)
[2016-06-21] MEDS: ISOSORBIDE MONONITRATE ER 60 MG TABLET PO SCH (08:59)
[2016-06-21] MEDS: CARVEDILOL 12.5 MG TABLET PO SCH ×2 (08:59→20:50)
[2016-06-21] MEDS: AMLODIPINE 5 MG TABLET PO SCH (08:59)
[2016-06-21] MEDS: LISINOPRIL 20 MG TABLET PO SCH (08:59)
[2016-06-21] MEDS: MONTELUKAST 10 MG TABLET PO SCH (08:59)
[2016-06-21] MEDS: CHOLECALCIFEROL 1,000 UNIT TABLET PO SCH (09:00)
[2016-06-21] MEDS: LACTOBACILLUS CHEW TABLET PO SCH ×3 (09:00→20:50)
[2016-06-21] MEDS: INSULIN DETEMIR 100 UNITS/ML, PEN SQ-INSULIN SCH ×2 (09:01→20:49)
[2016-06-21] MEDS: CLOPIDOGREL 75 MG TABLET PO SCH (09:02)
[2016-06-21] MEDS: SODIUM CHLORIDE FLUSH 10ML SYR IVF SCH ×2 (09:05→20:49)
[2016-06-21] MEDS: DOCUSATE 100 MG CAPSULE PO SCH (09:05)
[2016-06-21] MEDS: DAPTOMYCIN 400 MG in SODIUM CHLORIDE 0.9% 100 ML IVPB SCH (11:22)
[2016-06-21 13:41] VITALS: BP 115/50
[2016-06-21] MEDS: ENOXAPARIN 40 MG/0.4 ML SQ SCH (16:46)
[2016-06-21] MEDS: DIPHENOXYLATE/ATROPINE TABLET PO PRN (17:41)
[2016-06-21 19:50] VITALS: BP 150/50
[2016-06-21] MEDS: PROMETHAZINE 25MG TABLET PO PRN (20:49)
[2016-06-21] MEDS: NICOTINE 14MG/24 HR PATCH.TD24 TD SCH (21:00)
[2016-06-22 04:45] VITALS: BP 130/77
[2016-06-22 06:55] LABS: BLOOD UREA NITROGEN 20 mg/dL (7-18)
[2016-06-22 07:04] LABS: ASPARTATE AMINO TRANSFERASE 16 U/L (15-37)
[2016-06-22] MEDS: INSULIN ASPART 100 UNITS/ML, PEN SQ-INSULIN SCH ×4 (07:15→21:00)
[2016-06-22] MEDS: OXYcodone/APAP 5/325MG TABLET PO PRN ×3 (07:58→21:00)
[2016-06-22 08:14] VITALS: BP 163/55
[2016-06-22] MEDS: ISOSORBIDE MONONITRATE ER 60 MG TABLET PO SCH (08:19)
[2016-06-22] MEDS: MONTELUKAST 10 MG TABLET PO SCH (08:19)
[2016-06-22] MEDS: LACTOBACILLUS CHEW TABLET PO SCH ×3 (08:19→20:54)
[2016-06-22] MEDS: AMLODIPINE 5 MG TABLET PO SCH (08:19)
[2016-06-22] MEDS: CLOPIDOGREL 75 MG TABLET PO SCH (08:19)
[2016-06-22] MEDS: SODIUM CHLORIDE FLUSH 10ML SYR IVF SCH ×2 (08:19→20:54)
[2016-06-22] MEDS: LISINOPRIL 20 MG TABLET PO SCH (08:19)
[2016-06-22] MEDS: CHOLECALCIFEROL 1,000 UNIT TABLET PO SCH (08:19)
[2016-06-22] MEDS: CARVEDILOL 12.5 MG TABLET PO SCH ×2 (08:20→20:54)
[2016-06-22] MEDS: PANTOPRAZOLE 20MG TABLET PO SCH (08:20)
[2016-06-22] MEDS: INSULIN DETEMIR 100 UNITS/ML, PEN SQ-INSULIN SCH ×2 (08:20→20:55)
[2016-06-22] MEDS: DOCUSATE 100 MG CAPSULE PO SCH (08:20)
[2016-06-22] MEDS: OxyconTIN ER 10 MG TAB.ER PO SCH ×2 (11:57→23:37)
[2016-06-22] MEDS: DAPTOMYCIN 400 MG in SODIUM CHLORIDE 0.9% 100 ML IVPB SCH (11:57)
[2016-06-22 13:50] VITALS: BP 116/49
[2016-06-22] MEDS: ENOXAPARIN 40 MG/0.4 ML SQ SCH (16:19)
[2016-06-22 20:52] VITALS: BP 153/49
[2016-06-22] MEDS: NICOTINE 14MG/24 HR PATCH.TD24 TD SCH (21:00)
[2016-06-23 03:59] VITALS: BP 144/57
[2016-06-23] MEDS: INSULIN ASPART 100 UNITS/ML, PEN SQ-INSULIN SCH ×4 (06:00→20:22)
[2016-06-23 07:28] VITALS: BP 158/57
[2016-06-23] MEDS: CARVEDILOL 12.5 MG TABLET PO SCH ×2 (08:46→20:20)
[2016-06-23] MEDS: SODIUM CHLORIDE FLUSH 10ML SYR IVF SCH ×2 (08:46→20:20)
[2016-06-23] MEDS: MONTELUKAST 10 MG TABLET PO SCH (08:50)
[2016-06-23] MEDS: PANTOPRAZOLE 20MG TABLET PO SCH (08:50)
[2016-06-23] MEDS: LISINOPRIL 20 MG TABLET PO SCH (08:50)
[2016-06-23] MEDS: ISOSORBIDE MONONITRATE ER 60 MG TABLET PO SCH (08:50)
[2016-06-23] MEDS: LACTOBACILLUS CHEW TABLET PO SCH ×3 (08:50→20:20)
[2016-06-23] MEDS: CHOLECALCIFEROL 1,000 UNIT TABLET PO SCH (08:50)
[2016-06-23] MEDS: DOCUSATE 100 MG CAPSULE PO SCH (08:50)
[2016-06-23] MEDS: CLOPIDOGREL 75 MG TABLET PO SCH (08:50)
[2016-06-23] MEDS: AMLODIPINE 5 MG TABLET PO SCH (08:50)
[2016-06-23] MEDS: INSULIN DETEMIR 100 UNITS/ML, PEN SQ-INSULIN SCH ×2 (08:51→20:21)
[2016-06-23] MEDS ORDERED: FENTANYL PF 250 MCG/5ML ONE (10:34)
[2016-06-23] MEDS ORDERED: MIDAZOLAM 1 MG/ML, 2ML ONE (10:34)
[2016-06-23] MEDS ORDERED: BUPIVACAINE/PF-EPI 0.5% 1:200K ONE (10:52)
[2016-06-23] MEDS ORDERED: PROPOFOL 10 MG/ML, 20ML ONE (11:16)
[2016-06-23] MEDS ORDERED: GLYCOPYRROLATE 0.2MG/1ML ONE (11:16)
[2016-06-23] MEDS ORDERED: ONDANSETRON 2MG/ML, 2ML IVPush PRN (12:00)
[2016-06-23] MEDS ORDERED: LABETALOL 5MG/ML, 20ML IV PRN (12:00)
[2016-06-23] MEDS: OxyconTIN ER 10 MG TAB.ER PO SCH ×2 (12:00→20:19)
[2016-06-23] MEDS ORDERED: OXYcodone 5 MG/5 ML ORAL.SOL UDC PO PRN (12:00)
[2016-06-23] MEDS ORDERED: hydrALAzine 20 MG/ML, 1ML IV PRN (12:00)
[2016-06-23] MEDS ORDERED: NEOSPORIN OINT, 15GM ONE (12:25)
[2016-06-23] MEDS ORDERED: hydrALAzine 20 MG/ML, 1ML ONE (12:57)
[2016-06-23] MEDS ORDERED: HYDROmorphone 2 MG/ML, 1ML ONE (12:57)
[2016-06-23] MEDS ORDERED: FENTANYL PF 100 MCG/2ML ONE (12:57)
[2016-06-23] MEDS ORDERED: OXYcodone 5 MG/5 ML ORAL.SOL UDC ONE (12:57)
[2016-06-23] MEDS: HYDROmorphone 1 MG/ML, 1ML IV PRN ×4 (13:00→13:54)
[2016-06-23] MEDS: FENTANYL PF 100 MCG/2ML IV PRN ×2 (13:00→13:10)
[2016-06-23] MEDS ORDERED: ONDANSETRON 2MG/ML, 2ML ONE (13:40)
[2016-06-23 14:20] VITALS: BP 157/50
[2016-06-23] MEDS: DAPTOMYCIN 400 MG in SODIUM CHLORIDE 0.9% 100 ML IVPB SCH (16:55)
[2016-06-23] MEDS: OXYcodone/APAP 5/325MG TABLET PO PRN ×2 (18:09→23:25)
[2016-06-23] MEDS: PROMETHAZINE 25MG TABLET PO PRN (19:30)
[2016-06-23 19:59] VITALS: BP 146/50
[2016-06-23] MEDS: NICOTINE 14MG/24 HR PATCH.TD24 TD SCH (21:00)
[2016-06-24 00:38] VITALS: BP 153/68
[2016-06-24 03:04] VITALS: BP 152/51
[2016-06-24] MEDS: morphine SULFATE 10 MG/ML, 1ML IVPush PRN (04:05)
[2016-06-24] MEDS: OXYcodone/APAP 5/325MG TABLET PO PRN ×4 (05:56→23:46)
[2016-06-24] MEDS: INSULIN ASPART 100 UNITS/ML, PEN SQ-INSULIN SCH ×4 (06:04→21:00)
[2016-06-24 06:40] LABS: BLOOD UREA NITROGEN 19 mg/dL (7-18)
[2016-06-24 07:02] VITALS: BP 153/53
[2016-06-24] MEDS: CLOPIDOGREL 75 MG TABLET PO SCH (08:30)
[2016-06-24] MEDS: CHOLECALCIFEROL 1,000 UNIT TABLET PO SCH (08:30)
[2016-06-24] MEDS: MONTELUKAST 10 MG TABLET PO SCH (08:30)
[2016-06-24] MEDS: CARVEDILOL 12.5 MG TABLET PO SCH ×2 (08:30→22:35)
[2016-06-24] MEDS: LISINOPRIL 20 MG TABLET PO SCH (08:30)
[2016-06-24] MEDS: AMLODIPINE 5 MG TABLET PO SCH (08:30)
[2016-06-24] MEDS: ISOSORBIDE MONONITRATE ER 60 MG TABLET PO SCH (08:30)
[2016-06-24] MEDS: LACTOBACILLUS CHEW TABLET PO SCH ×3 (08:31→22:35)
[2016-06-24] MEDS: ENOXAPARIN 40 MG/0.4 ML SQ SCH (08:31)
[2016-06-24] MEDS: SODIUM CHLORIDE FLUSH 10ML SYR IVF SCH ×2 (08:31→22:35)
[2016-06-24] MEDS: OxyconTIN ER 10 MG TAB.ER PO SCH ×2 (08:31→22:35)
[2016-06-24] MEDS: PANTOPRAZOLE 20MG TABLET PO SCH (08:31)
[2016-06-24] MEDS: INSULIN DETEMIR 100 UNITS/ML, PEN SQ-INSULIN SCH ×2 (08:32→22:42)
[2016-06-24] MEDS: DOCUSATE 100 MG CAPSULE PO SCH (08:33)
[2016-06-24 13:25] VITALS: BP 109/67
[2016-06-24] MEDS: DAPTOMYCIN 400 MG in SODIUM CHLORIDE 0.9% 100 ML IVPB SCH (17:56)
[2016-06-24 18:29] VITALS: BP 120/51
[2016-06-24] MEDS: NICOTINE 14MG/24 HR PATCH.TD24 TD SCH (21:00)
[2016-06-25 02:48] VITALS: BP 152/51
[2016-06-25] MEDS: DEXTROSE 50%, 50ML SYRINGE IVPush PRN (06:55)
[2016-06-25 07:14] VITALS: BP 131/49
[2016-06-25] MEDS: INSULIN ASPART 100 UNITS/ML, PEN SQ-INSULIN SCH ×3 (08:14→17:32)
[2016-06-25] MEDS: PANTOPRAZOLE 20MG TABLET PO SCH (08:15)
[2016-06-25] MEDS: OXYcodone/APAP 5/325MG TABLET PO PRN ×3 (08:15→21:44)
[2016-06-25] MEDS: AMLODIPINE 5 MG TABLET PO SCH (09:49)
[2016-06-25] MEDS: DOCUSATE 100 MG CAPSULE PO SCH (09:49)
[2016-06-25] MEDS: SODIUM CHLORIDE FLUSH 10ML SYR IVF SCH ×2 (09:49→21:42)
[2016-06-25] MEDS: CARVEDILOL 12.5 MG TABLET PO SCH ×2 (09:50→21:44)
[2016-06-25] MEDS: MONTELUKAST 10 MG TABLET PO SCH (09:50)
[2016-06-25] MEDS: ISOSORBIDE MONONITRATE ER 60 MG TABLET PO SCH (09:50)
[2016-06-25] MEDS: OxyconTIN ER 10 MG TAB.ER PO SCH ×2 (09:50→21:44)
[2016-06-25] MEDS: CHOLECALCIFEROL 1,000 UNIT TABLET PO SCH (09:50)
[2016-06-25] MEDS: CLOPIDOGREL 75 MG TABLET PO SCH (09:55)
[2016-06-25] MEDS: LISINOPRIL 20 MG TABLET PO SCH (09:55)
[2016-06-25] MEDS: LACTOBACILLUS CHEW TABLET PO SCH ×3 (09:55→21:44)
[2016-06-25 12:32] VITALS: BP 117/48
[2016-06-25] MEDS: ASPIRIN 325 MG TABLET EC PO SCH (18:00)
[2016-06-25] MEDS: DAPTOMYCIN 400 MG in SODIUM CHLORIDE 0.9% 100 ML IVPB SCH (18:01)
[2016-06-25 20:36] VITALS: BP 130/45
[2016-06-25] MEDS: NICOTINE 14MG/24 HR PATCH.TD24 TD SCH (21:00)
[2016-06-25] MEDS: INSULIN DETEMIR 100 UNITS/ML, PEN SQ-INSULIN SCH (21:44)
[2016-06-26] MEDS: INSULIN ASPART 100 UNITS/ML, PEN SQ-INSULIN SCH ×5 (00:09→22:51)
[2016-06-26 01:15] VITALS: BP 137/47
[2016-06-26] MEDS: OXYcodone/APAP 5/325MG TABLET PO PRN ×2 (06:46→14:55)
[2016-06-26 06:55] VITALS: BP 156/45
[2016-06-26] MEDS: ASPIRIN 325 MG TABLET EC PO SCH ×2 (07:07→17:08)
[2016-06-26] MEDS: PANTOPRAZOLE 20MG TABLET PO SCH (07:43)
[2016-06-26] MEDS: LACTOBACILLUS CHEW TABLET PO SCH ×3 (09:46→22:23)
[2016-06-26] MEDS: CLOPIDOGREL 75 MG TABLET PO SCH (09:46)
[2016-06-26] MEDS: CHOLECALCIFEROL 1,000 UNIT TABLET PO SCH (09:47)
[2016-06-26] MEDS: CARVEDILOL 12.5 MG TABLET PO SCH ×2 (09:47→22:23)
[2016-06-26] MEDS: DOCUSATE 100 MG CAPSULE PO SCH (09:47)
[2016-06-26] MEDS: LISINOPRIL 20 MG TABLET PO SCH (09:47)
[2016-06-26] MEDS: AMLODIPINE 5 MG TABLET PO SCH (09:47)
[2016-06-26] MEDS: MONTELUKAST 10 MG TABLET PO SCH (09:47)
[2016-06-26] MEDS: INSULIN DETEMIR 100 UNITS/ML, PEN SQ-INSULIN SCH ×2 (09:48→22:52)
[2016-06-26] MEDS: SODIUM CHLORIDE FLUSH 10ML SYR IVF SCH ×3 (09:48→23:03)
[2016-06-26] MEDS: ISOSORBIDE MONONITRATE ER 60 MG TABLET PO SCH (09:53)
[2016-06-26] MEDS: OxyconTIN ER 10 MG TAB.ER PO SCH ×2 (09:54→22:23)
[2016-06-26 15:04] VITALS: BP 139/67
[2016-06-26] MEDS: DAPTOMYCIN 400 MG in SODIUM CHLORIDE 0.9% 100 ML IVPB SCH (17:33)
[2016-06-26 19:42] VITALS: BP 120/54
[2016-06-26] MEDS: NICOTINE 14MG/24 HR PATCH.TD24 TD SCH (23:00)
[2016-06-27 00:35] VITALS: BP 159/50
[2016-06-27 05:12] LABS: ASPARTATE AMINO TRANSFERASE 23 U/L (15-37); BLOOD UREA NITROGEN 21 mg/dL (7-18)
[2016-06-27] MEDS: ASPIRIN 325 MG TABLET EC PO SCH (06:00)
[2016-06-27] MEDS: PANTOPRAZOLE 20MG TABLET PO SCH (08:00)
[2016-06-27] MEDS: INSULIN ASPART 100 UNITS/ML, PEN SQ-INSULIN SCH ×2 (08:00→12:17)
[2016-06-27] MEDS ORDERED: ENOXAPARIN 40 MG/0.4 ML SQ SCH (09:00)
[2016-06-27] MEDS ORDERED: INSULIN DETEMIR 100 UNITS/ML, PEN SQ-INSULIN SCH (09:00)
[2016-06-27 09:22] VITALS: BP 145/40
[2016-06-27] MEDS: OXYcodone/APAP 5/325MG TABLET PO PRN ×2 (09:45→15:23)
[2016-06-27] MEDS: AMLODIPINE 5 MG TABLET PO SCH (09:45)
[2016-06-27] MEDS: LACTOBACILLUS CHEW TABLET PO SCH (09:45)
[2016-06-27] MEDS: ISOSORBIDE MONONITRATE ER 60 MG TABLET PO SCH (09:45)
[2016-06-27] MEDS: OxyconTIN ER 10 MG TAB.ER PO SCH (09:45)
[2016-06-27] MEDS: LISINOPRIL 20 MG TABLET PO SCH (09:46)
[2016-06-27] MEDS: MONTELUKAST 10 MG TABLET PO SCH (09:46)
[2016-06-27] MEDS: CHOLECALCIFEROL 1,000 UNIT TABLET PO SCH (09:46)
[2016-06-27] MEDS: DOCUSATE 100 MG CAPSULE PO SCH (09:46)
[2016-06-27] MEDS: CARVEDILOL 12.5 MG TABLET PO SCH (09:46)
[2016-06-27] MEDS: CLOPIDOGREL 75 MG TABLET PO SCH (09:46)
[2016-06-27] MEDS: SODIUM CHLORIDE FLUSH 10ML SYR IVF SCH (09:47)
[2016-06-27] MEDS ORDERED: MAGNESIUM HYDROXIDE 8%, 30ML UDC PO PRN (11:30)
[2016-06-27 12:29] VITALS: BP 114/38
[2016-06-27] MEDS ORDERED: OXYC1TAB7 PO (14:54)
[2016-06-27] MEDS ORDERED: INSU100I18 SQ-INSULIN (14:54)
[2016-06-27] MEDS ORDERED: INSU100I28 SQ-INSULIN (14:54)
[2016-06-27] MEDS ORDERED: OXYC10TA32 PO (14:54)
[2016-06-27] MEDS ORDERED: ALPR-475 PO (14:54)
[2016-06-27] MEDS ORDERED: NICO1PAT4 TD (14:54)
[2016-06-27] MEDS ORDERED: DOCU-30 PO (14:54)
[2016-06-27] MEDS ORDERED: AMLO5TAB2 PO (14:54)
== END 2016-06-27 15:30 | DRG 270 ==
LOC: ED 13:19 → EDIP 16:02 → 4NOR 17:15 → 4WST 17:55 → 4NOR 05-22 14:39
PROVIDERS: ADMIT Internal Medicine; ATTEND Internal Medicine
PROC: B41G1ZZ Fluoroscopy of Left Lower Extremity Arteries using Low Osmolar Contrast (ICD-10-PCS; principal; 2016-05-12)
PROC: 04CK3ZZ Extirpation of Matter from Right Femoral Artery, Percutaneous Approach (ICD-10-PCS; 2016-05-12)
PROC: 047K3Z1 Dilation of Right Femoral Artery using Drug-Coated Balloon, Percutaneous Approach (ICD-10-PCS; 2016-05-12)
PROC: B41F1ZZ Fluoroscopy of Right Lower Extremity Arteries using Low Osmolar Contrast (ICD-10-PCS; 2016-05-12)
PROC: B5181ZA Fluoroscopy of Superior Vena Cava using Low Osmolar Contrast, Guidance (ICD-10-PCS; 2016-05-16)
PROC: B548ZZA Ultrasonography of Superior Vena Cava, Guidance (ICD-10-PCS; 2016-05-16)
PROC: 0Y6X0Z0 Detachment at Right 5th Toe, Complete, Open Approach (ICD-10-PCS; 2016-05-21)
PROC: 0QBN0ZZ Excision of Right Metatarsal, Open Approach (ICD-10-PCS; 2016-05-21)
PROC: B4101ZZ Fluoroscopy of Abdominal Aorta using Low Osmolar Contrast (ICD-10-PCS; 2016-06-10)
PROC: B41F1ZZ Fluoroscopy of Right Lower Extremity Arteries using Low Osmolar Contrast (ICD-10-PCS; 2016-06-10)
PROC: B41G1ZZ Fluoroscopy of Left Lower Extremity Arteries using Low Osmolar Contrast (ICD-10-PCS; 2016-06-10)
PROC: 0Y6M0ZF Detachment at Right Foot, Partial 5th Ray, Open Approach (ICD-10-PCS; 2016-06-11)
PROC: 0Y6H0Z1 Detachment at Right Lower Leg, High, Open Approach (ICD-10-PCS; 2016-06-23)
DX: I70.261 Atherosclerosis of native arteries of extremities with gangrene, right leg (principal); E43 Unspecified severe protein-calorie malnutrition; L03.115 Cellulitis of right lower limb; I13.0 Hypertensive heart and chronic kidney disease with heart failure and stage 1 through stage 4 chronic kidney disease, or unspecified chronic kidney disease; E87.1 Hypo-osmolality and hyponatremia; I50.42 Chronic combined systolic (congestive) and diastolic (congestive) heart failure; L02.415 Cutaneous abscess of right lower limb; M86.171 Other acute osteomyelitis, right ankle and foot; T85.694A Other mechanical complication of insulin pump, initial encounter; E11.69 Type 2 diabetes mellitus with other specified complication; L97.519 Non-pressure chronic ulcer of other part of right foot with unspecified severity; D50.0 Iron deficiency anemia secondary to blood loss (chronic); D72.820 Lymphocytosis (symptomatic); N18.3 Chronic kidney disease, stage 3 (moderate); E11.22 Type 2 diabetes mellitus with diabetic chronic kidney disease; E78.00 Pure hypercholesterolemia, unspecified; K21.9 Gastro-esophageal reflux disease without esophagitis; Z95.1 Presence of aortocoronary bypass graft; E11.42 Type 2 diabetes mellitus with diabetic polyneuropathy; E11.621 Type 2 diabetes mellitus with foot ulcer; E11.649 Type 2 diabetes mellitus with hypoglycemia without coma; E78.2 Mixed hyperlipidemia; Z95.5 Presence of coronary angioplasty implant and graft; Z87.11 Personal history of peptic ulcer disease; Z87.440 Personal history of urinary (tract) infections; Z96.41 Presence of insulin pump (external) (internal); Z90.710 Acquired absence of both cervix and uterus; J44.9 Chronic obstructive pulmonary disease, unspecified; M06.9 Rheumatoid arthritis, unspecified; B37.3 Candidiasis of vulva and vagina; B95.62 Methicillin resistant Staphylococcus aureus infection as the cause of diseases classified elsewhere; I25.10 Atherosclerotic heart disease of native coronary artery without angina pectoris; D50.9 Iron deficiency anemia, unspecified; D63.8 Anemia in other chronic diseases classified elsewhere; K22.70 Barrett's esophagus without dysplasia; E11.52 Type 2 diabetes mellitus with diabetic peripheral angiopathy with gangrene; E11.65 Type 2 diabetes mellitus with hyperglycemia; F32.9 Major depressive disorder, single episode, unspecified; F41.9 Anxiety disorder, unspecified; G54.6 Phantom limb syndrome with pain; I25.5 Ischemic cardiomyopathy; K59.00 Constipation, unspecified; L29.9 Pruritus, unspecified; L97.529 Non-pressure chronic ulcer of other part of left foot with unspecified severity; Y74.2 Prosthetic and other implants, materials and accessory general hospital and personal-use devices associated with adverse incidents; Z79.4 Long term (current) use of insulin; Z82.49 Family history of ischemic heart disease and other diseases of the circulatory system; Z86.14 Personal history of Methicillin resistant Staphylococcus aureus infection; Z88.0 Allergy status to penicillin; Z89.422 Acquired absence of other left toe(s); Z89.512 Acquired absence of left leg below knee; Z88.2 Allergy status to sulfonamides; Z88.5 Allergy status to narcotic agent; Z81.1 Family history of alcohol abuse and dependence; Z79.82 Long term (current) use of aspirin; Z79.899 Other long term (current) drug therapy; Z79.02 Long term (current) use of antithrombotics/antiplatelets; Z87.891 Personal history of nicotine dependence; Z79.84 Long term (current) use of oral hypoglycemic drugs; T87.54 Necrosis of amputation stump, left lower extremity; J45.909 Unspecified asthma, uncomplicated
CPT/HCPCS: 36246; 36415; 36569; 37225; 75625; 75630; 75635; 75716; 76937; 77001; 78315; 78452; 80048; 80053; 80202; 82550; 82947; 82962; 83036; 83540; 83550; 83605; 83735; 84100; 84145; 84484; 85014; 85018; 85025; 85610; 85651; 85730; 86140; 87015; 87040; 87070; 87075; 87077; 87102; 87116; 87176; 87186; 87205; 87206; 87324; 88305; 88307; 88311; 93005; 93017; 93306; 93922; 93925; 96365; 96366; 96367; 96375; 99156; 99157; C1725; C1894; C2623; J0712; J0878; J1170; J1364; J1450; J1644; J1650; J1756; J1815; J2250; J2405; J2550; J2704; J2720; J2785; J2997; J3010; J3370; J3480; J3490; Q0169; Q9966; Q9967; A9502; A9503; C1714; C1751; C1769; C1884; C9898; J0360; J1200; J2270; J2310; J7030; J7040; J7050